=== PATIENT | female | born 1945 | race Caucasian/White ===

== ENCOUNTER 2017-07-09 20:31 | Emergency (ER) | payer OTHER ==
[2017-07-09 20:48] VITALS: BP 158/77; PULSE 70; TEMP 98.8; BMI 29.9
--- NOTE | 2017-07-09 21:50 | PDOC ---
History of Present Illness - General Chief Complaint: Pain Stated Complaint: TOES INJURY Time Seen by Provider: 07/09/17 21:48 History Source: Patient Exam Limitations: No Limitations - History of Present Illness Initial Comments: 07/09/17 22:52 Chief complaint: Left large toe pain History of present illness: Patient is a 71-year-old female with a history of vwc-xzhrlyb-kzobfyljn diabetes, Gerd, HTN, UT, hyperlipidemia here today complaining of left large toe pain after fish tank fell on it yesterday. Patient reports that toe is throbbing. Patient denies any numbness of toe. Patient has not taken anything for pain. 07/09/17 22:54 07/09/17 22:57 Occurred: reports: yesterday Severity: reports: moderate Pain Location: reports: lower extremity (left large toe ) Method of Injury: Yes: direct blow (by fish tank ) Modifying Factors: improves with: None Loss of Consciousness: no loss of consciousness Associated Symptoms (Fall): denies symptoms Past History - Past Medical History Allergies/Adverse Reactions: Allergies Allergy/AdvReac Type Severity Reaction Status Date / Time Penicillins Allergy HIVES Verified 07/09/17 20:45 SWELLING IVP DYE Allergy Swelling Uncoded 07/09/17 20:45 Home Medications: Ambulatory Orders Aspirin [ASA -] 81 mg PO DAILY 07/09/17 Anemia: No Asthma: No Cancer: No Cardiac Disorders: Yes ([place]) CVA: No COPD: No CHF: No Dementia: No Diabetes: Yes GI Disorders: No Disorders: Yes (UTI) HTN: Yes Hypercholesterolemia: Yes Liver Disease: No Suicide Attempt (Hx): No Seizures: No Thyroid Disease: Yes (HYPOTHROIDISM) - Surgical History Abdominal Surgery: No Appendectomy: No Cardiac Surgery: Yes (STENTS X2) Cholecystectomy: No Lung Surgery: No Neurologic Surgery: No Orthopedic Surgery: Yes (LEFT KNEE SURGERY) - Psycho/Social/Smoking Cessation Hx Anxiety: No Suicidal Ideation: No Smoking Status: No Smoking History: Never smoked Have you smoked in the past 12 months: No Number of Cigarettes Smoked Daily: 0 If you are a former smoker, when did you quit?: 1993 Information on smoking cessation initiated: No Hx Alcohol Use: No Drug/Substance Use Hx: No Substance Use Type: None Hx Substance Use Treatment: No Review of Systems - Review of Systems Able to Perform ROS?: Yes Constitutional: No: Symptoms Reported HEENTM: No: Symptoms Reported Respiratory: No: Symptoms reported Cardiac (ROS): No: Symptoms Reported ABD/GI: No: Symptoms Reported : No: Symptoms Reported Musculoskeletal: Yes: Joint Pain (left large toe ), Joint Swelling (left large toe slight ) Integumentary: Yes: Other (subungal hematoma 20 % left large toenail ) Neurological: No: Symptoms reported *Physical Exam - Vital Signs Last Vital Signs Temp Pulse Resp BP Pulse Ox 98.8 F 70 20 158/77 98 07/09/17 20:45 07/09/17 20:45 07/09/17 20:45 07/09/17 20:45 07/09/17 20:45 - Physical Exam General Appearance: Yes: Appropriately Dressed Respiratory/Chest: positive: Lungs Clear, Normal Breath Sounds. negative: Chest Tender, Respiratory Distress Cardiovascular: positive: Regular Rhythm, Regular Rate, S1, S2 Vascular Pulses: Doralis-Pedis (L): 4+ Extremity: positive: Normal Capillary Refill, Normal Range of Motion (left large toe ), Tender (left large toe ), Swelling (minimal left large toe), Erythema (left large toe) Integumentary: positive: Other (subungal hematoma 20 % proximal aspect) Neurologic: positive: Normal Response (left large toe), Respond to painful stimul (left large toe ). negative: Numbness, Sensory Deficit Procedures - Consent Consent obtained: From Patient - Splinting Progress: 07/09/17 22:57 taped left large toe and second toe together and provided a hard sole shoe Medical Decision Making - Medical Decision Making 07/09/17 22:57 07/09/17 22:58 Patient is a 71-year-old female with a history of bth-lqiyzhu-smeflnkdf diabetes , Gerd, HTN, UT, hyperlipidemia here today complaining of left large toe pain after fish tank fell on it yesterday. Patient reports that toe is throbbing. Patient denies any numbness of toe. Patient has not taken anything for pain. Left large toe fracture subungal hematoma proximal aspect 20 % PLAN: xray left large toe fracture of distal aspect amilcar taped left large toe and second toe together, hard sole shoe applied follow up with podiatry *DC/Admit/Observation/Transfer Diagnosis at time of Disposition: Fracture of toe of left foot Qualifiers: Encounter type: initial encounter Toe: great toe Fracture type: closed Phalanx : distal Fracture alignment: nondisplaced Qualified Code(s): S92.425A - Nondisplaced fracture of distal phalanx of left great toe, initial encounter for closed fracture Subungual hematoma of great toe of left foot Qualifiers: Encounter type: initial encounter Qualified Code(s): S90.212A - Contusion of left great toe with damage to nail, initial encounter - Discharge Dispostion Disposition: HOME Condition at time of disposition: Stable - Referrals Referrals: Travis Ospina MD [Primary Care Provider] - Jose Mcbride MD [Staff Physician] - - Patient Instructions Additional Instructions: Tape your left first and second toe together and wear hard sole shoes Follow-up with vp production as soon as possible for further evaluation Take acetaminophen as needed as directed by vending supervisor for pain Return to emergency room if symptoms worsen or new symptoms develop Patient voiced understanding of discharge instructions and all questions were answered
[2017-07-09] MEDS ORDERED: ACETAMINOPHEN 500 MG TABLET (FP) PO ONE (22:41)
[2017-07-09] MEDS ORDERED: ACETAMINOPHEN 500 MG TABLET (FP) ONE ×2 (22:43→22:44)
== END 2017-07-09 23:03 | disposition home or self-care (01) ==
LOC: JERFT 20:31
DX: S92.425A Nondisplaced fracture of distal phalanx of left great toe, initial encounter for closed fracture (principal); S90.212A Contusion of left great toe with damage to nail, initial encounter; W20.8XXA Other cause of strike by thrown, projected or falling object, initial encounter; Y93.89 Activity, other specified; Y92.89 Other specified places as the place of occurrence of the external cause; I25.2 Old myocardial infarction; I10 Essential (primary) hypertension; E11.9 Type 2 diabetes mellitus without complications; Z79.84 Long term (current) use of oral hypoglycemic drugs; K21.9 Gastro-esophageal reflux disease without esophagitis; E78.00 Pure hypercholesterolemia, unspecified; E03.9 Hypothyroidism, unspecified
CPT/HCPCS: 73630-TC-LT; 99281-25

== ENCOUNTER 2018-02-08 17:58 | Inpatient (IN) | payer OTHER ==
--- NOTE | 2018-02-08 18:11 | PDOC ---
Rapid Medical Evaluation Time Seen by Provider: 02/08/18 18:08 Medical Evaluation: Allergies Allergy/AdvReac Type Severity Reaction Status Date / Time Penicillins Allergy HIVES Verified 07/09/17 20:45 SWELLING IVP DYE Allergy Swelling Uncoded 07/09/17 20:45 02/08/18 18:08 I have performed a brief in-person evaluation of this patient. The patient presents with a chief complaint of: fever, weakness, dizziness, n/v/ d x 4 days, urinary frequency, incontinence, coughing, hx of diabetes Pertinent physical exam findings: weak appearing, wheezing to RLL, tachy to 90s (baseline 60s-70s) I have ordered the following: septic workup The patient will proceed to the ED for further evaluation. 02/08/18 18:13 Discharge Disposition - Diagnosis Cough, Vomiting, Diarrhea, Weakness - Referrals Referrals: Travis Ospina MD [Primary Care Provider] - - Patient Instructions - Post Discharge Activity
[2018-02-08 18:14] VITALS: BMI 27.9
[2018-02-08 19:25] LABS: VENOUS PH 7.44 (7.32-7.42); VENOUS PO2 36.3 mmHg (28-48)
[2018-02-08 19:31] LABS: BASO % 0.5 % (0-2.0); HEMATOCRIT 40.8 % (32.4-45.2); LYMPH % 10.4 % (8-40); MCH 31.8 pg (25.7-33.7); MCHC 34.3 g/dl (32.0-36.0); MEAN CELL VOLUME 92.6 fl (80-96); MEAN PLT VOLUME 7.7 fl (7.5-11.1); MONO % 7.3 % (3.8-10.2); NEUT % 81.8 % (42.8-82.8); PLATELET COUNT 178 K/MM3 (134-434); RBC 4.41 M/mm3 (3.60-5.2); WHITE BLOOD COUNT 13.5 K/mm3 (4.0-10.0)
[2018-02-08 19:54] LABS: INR 1.26 (0.82-1.09); PROTHROMBIN TIME (PATIENT) 14.2 SEC (9.98-11.88)
[2018-02-08 19:57] LABS: ACTIVATED PTT 28.8 SECONDS (26.9-34.4)
[2018-02-08 20:08] LABS: ALBUMIN 3.3 g/dl (3.4-5.0); ALK PHOS 89 U/L (45-117); ANION GAP 10 (8-16); BILIRUBIN,TOTAL 1.1 mg/dL (0.2-1.0); BLOOD UREA NITROGEN 14 mg/dL (7-18); CALCIUM 8.2 mg/dL (8.5-10.1); CHLORIDE 94 mmol/L (98-107); CO2 26 mmol/L (21-32); CREATININE 0.8 mg/dL (0.55-1.02); GLUCOSE,RANDOM 267 mg/dL (74-106); POTASSIUM 3.8 mmol/L (3.5-5.1); SGOT/AST 24 U/L (15-37); SGPT/ALT 18 U/L (12-78); SODIUM 130 mmol/L (136-145); TOT PROT 6.8 g/dl (6.4-8.2)
--- NOTE | 2018-02-08 20:32 | PDOC ---
History of Present Illness - General Chief Complaint: Nausea/Vomiting Stated Complaint: Vomiting/Diarrhea Time Seen by Provider: 02/08/18 18:08 - History of Present Illness Initial Comments: 02/08/18 21:15 72-year-old female history of hypertension, diabetes (not compliant with medications as she is unable to afford the co-pay) presents emergency Department with 4 days of progressive chest pain as well as nausea and diarrhea. Patient reports the chest pain is central radiating to the left chest down her left arm and is worse with exertion but also present at rest. She also reports 2 days of diarrhea and productive cough, noting that she was incontinent of diarrhea today which is abnormal for her. Denies fevers, + chills. Denies SOB, LE edema. Denies any abdominal pain. Denies any dizziness, weakness/numbness. Has not tried any medications. Presented today due to the chest pain. PMD: Dr. Ospina Social: distant smoker, no etoh, illicit drugs 02/08/18 21:17 Past History - Past Medical History Allergies/Adverse Reactions: Allergies Allergy/AdvReac Type Severity Reaction Status Date / Time Penicillins Allergy HIVES Verified 02/08/18 18:08 SWELLING IVP DYE Allergy Swelling Uncoded 02/08/18 18:08 Home Medications: Ambulatory Orders Aspirin [ASA -] 81 mg PO DAILY 07/09/17 Anemia: No Asthma: No Cancer: No Cardiac Disorders: Yes ([place]) CVA: No COPD: No CHF: No DVT: No Dementia: No Diabetes: Yes GI Disorders: No Disorders: Yes (UTI) HTN: Yes Hypercholesterolemia: Yes Liver Disease: No Seizures: No Thyroid Disease: Yes (HYPOTHROIDISM) - Surgical History Abdominal Surgery: No Appendectomy: No Cardiac Surgery: Yes (STENTS X2) Cholecystectomy: No Lung Surgery: No Neurologic Surgery: No Orthopedic Surgery: Yes (LEFT KNEE SURGERY) - Immunization History Immunization Up to Date: Yes - Suicide/Smoking/Psychosocial Hx Smoking Status: No Smoking History: Never smoked Have you smoked in the past 12 months: No Number of Cigarettes Smoked Daily: 0 If you are a former smoker, when did you quit?: 1993 Information on smoking cessation initiated: No Hx Alcohol Use: No Drug/Substance Use Hx: No Substance Use Type: None Hx Substance Use Treatment: No Review of Systems - Review of Systems Comments:: 02/08/18 21:16 GENERAL/CONSTITUTIONAL: No fever +chills, +weakness HEAD, EYES, EARS, NOSE AND THROAT: No change in vision. No ear pain or discharge. No sore throat. GASTROINTESTINAL: +nausea, +diarrhea, no vomiting or constipation. GENITOURINARY: No dysuria, frequency, or change in urination. CARDIOVASCULAR: +chest pain, no shortness of breath. RESPIRATORY: +cough and wheezing, no hemoptysis. MUSCULOSKELETAL: No joint or muscle swelling or pain. No neck or back pain. SKIN: No rash NEUROLOGIC: No headache, vertigo, loss of consciousness, or change in strength/ sensation. ENDOCRINE: No increased thirst. No abnormal weight change. HEMATOLOGIC/LYMPHATIC: No anemia, easy bleeding, or history of blood clots. ALLERGIC/IMMUNOLOGIC: No hives or skin allergy. *Physical Exam - Vital Signs Last Vital Signs Temp Pulse Resp BP Pulse Ox 98.8 F 94 H 20 122/71 98 02/08/18 18:09 02/08/18 18:09 02/08/18 18:09 02/08/18 18:09 02/08/18 18:09 - Physical Exam Comments: 02/08/18 21:20 GENERAL: Awake, alert, and fully oriented, in no acute distress HEAD: No signs of trauma EYES: PERRLA, EOMI, sclera anicteric, conjunctiva clear ENT: Auricles normal inspection, hearing grossly normal, nares patent, mild OP erythema without exudates. Moist mucosa NECK: Normal ROM, supple, no lymphadenopathy, JVD, or masses LUNGS: diffuse wheezing with good air movement HEART: Regular rate and rhythm, normal S1 and S2, no murmurs, rubs or gallops ABDOMEN: Soft, nontender, normoactive bowel sounds. No guarding, no rebound. No masses EXTREMITIES: Normal range of motion, no edema. No clubbing or cyanosis. No cords, erythema, or tenderness NEUROLOGICAL: Normal speech, cranial nerves intact, negative pronator drift, 5/ 5 strength in all 4 extremities, normal sensation to light touch in all 4 extremities, normal cerebellar exam, normal gait, normal reflexes and tone SKIN: Warm, Dry, normal turgor, no rashes or lesions noted. Heart Score/ECG Review #1 02/08/18 21:20 Twelve-lead EKG was performed and reviewed by me. Normal sinus rhythm, rate 89. Left axis deviation.+ Right bundle branch block. Compared to EKG from 10/25/2015 , axis is now left and incomplete right bundle is now complete. ED Treatment Course - LABORATORY CBC & Chemistry Diagram: 02/08/18 19:15 02/08/18 19:15 - ADDITIONAL ORDERS Additional order review: Laboratory Results 02/08/18 02/08/18 02/08/18 19:15 19:15 19:15 PT with INR 14.20 H INR 1.26 H D PTT (Actin FS) 28.8 VBG pH 7.44 H POC VBG pCO2 39.0 POC VBG pO2 36.3 Mixed VBG HCO3 26.2 H Lactic Acid 1.6 02/08/18 19:15 RBC 4.41 MCV 92.6 MCHC 34.3 RDW 13.0 MPV 7.7 D Neutrophils % 81.8 D Lymphocytes % 10.4 D Monocytes % 7.3 Eosinophils % 0.0 D Basophils % 0.5 Medical Decision Making - Medical Decision Making 02/08/18 21:21 72-year-old female with a history of hypertension and diabetes (noncompliant with medications) presents emergency Department with complaints of chest pain, nausea, diarrhea, and generalized weakness. Vitals unremarkable. Exam with diffuse wheezing to auscultation. Differential is wide and includes acute coronary syndrome versus viral syndrome versus pneumonia versus angina. Given elevated heart score, and multiple risk factors, we'll admit the patient for cardiac workup. 02/08/18 21:59 UA with UTI, given allergy to PCN (swelling hives), levaquin ordered. Case discussed with nurse practitioner Kari who accepts patient for admission to telemetry/obs with Dr. Whatley as the attending. Case discussed in detail with admitting physician including history, physical exam and ancillary studies. Admitting physician has assumed care for the patient, will follow all pending diagnostics and will complete the evaluation and treatment. *DC/Admit/Observation/Transfer Diagnosis at time of Disposition: Cough, Vomiting, Diarrhea, Weakness, Chest pain - Discharge Dispostion Condition at time of disposition: Stable Admit: Yes - Referrals Referrals: Travis Ospina MD [Primary Care Provider] - - Patient Instructions - Post Discharge Activity - Attestations Physician Attestion: 02/08/18 22:01 Dr. Franci Appiah MD, attest that this document has been prepared under my direction and personally reviewed by me in its entirety. I further attest, that it accurately reflects all work, treatment, procedures and medical decision -making performed by me.
[2018-02-08] MEDS ORDERED: ALBUTEROL SO4 2.5/IPRATROPIUM 0.5 INH SOL 3 ML VIAL.NEB. NEB ONE ×2 (21:19→21:25)
[2018-02-08] MEDS ORDERED: ASPIRIN 325 MG TABLET PO ONE (21:19)
[2018-02-08 21:20] LABS: URINE APPEARANCE CLOUDY; URINE BILIRUBIN NEGATIVE (<2.0 mg/dL); URINE BLOOD 1+ (NEGATIVE); URINE COLOR DKYELLOW; URINE GLUCOSE (UA) 3+ (NEGATIVE); URINE KETONE 1+ (NEGATIVE); URINE NITRITE NEGATIVE (NEGATIVE); URINE UROBILINOGEN 4.0 E.U/dl mg/dL (0.2-1.0)
[2018-02-08 21:21] LABS: URINE LEUK ESTERASE 3+ (NEGATIVE); URINE PROTEIN 1+ (NEGATIVE)
[2018-02-08] MEDS ORDERED: ASPIRIN 325 MG TABLET ONE (21:22)
[2018-02-08 21:24] LABS: EPI CELLS FEW /HPF (FEW); URINE HYALINE CAST 2 /lpf; URINE MUCUS RARE
--- NOTE | 2018-02-09 00:11 | HP ---
CHIEF COMPLAINT: chest pain PCP: Bhavesh HISTORY OF PRESENT ILLNESS: This is a 72 year old female with a past medical history of HTN, DM, MN, stent who presented tot ED with chest pain x 4 days. Associated with some SOB; radiates down left arm; worse on exertion. 2 day history of nausea, diarrhea and productive cough. Pt also reports that she has not taken any of her medications as she cannot afford the copay. ER course was notable for: (1) ECG with new RBBB, trop neg Recent Travel: pt denies PAST MEDICAL HISTORY: HTN, MN s/p stent, DM, ? hypothyroid-previous chart documented but pt denies PAST SURGICAL HISTORY: stent x 2 pt denies h/o of knee surgery Social History: Smoking: as a teenager only Alcohol: pt denies Drugs: pt denies Family History: mother age 84, rectal CA, ? breast CA father in his 50s, heart multiple siblings with HLD and heart disease daughter with colon CA. Allergies Penicillins Allergy (Verified 02/08/18 18:08) HIVES SWELLING in neck IVP DYE Allergy (Uncoded 02/08/18 18:08) Swelling HOME MEDICATIONS: 3 Medication Instructions Recorded Aspirin [ASA -] 81 mg PO DAILY 07/09/17 REVIEW OF SYSTEMS CONSTITUTIONAL: Absent: fever, chills, diaphoresis, generalized weakness, malaise, loss of appetite, weight change HEENT: Absent: rhinorrhea, nasal congestion, throat pain, throat swelling, difficulty swallowing, mouth swelling, ear pain, eye pain, visual changes CARDIOVASCULAR: Present: chest pain Absent: syncope, palpitations, irregular heart rate, lightheadedness, peripheral edema RESPIRATORY: Present: cough, shortness of breath Absent: dyspnea with exertion, orthopnea, wheezing, stridor, hemoptysis GASTROINTESTINAL: Present: nausea, diarrhea Absent: abdominal pain, abdominal distension, vomiting, constipation, melena, hematochezia GENITOURINARY: Absent: dysuria, frequency, urgency, hesitancy, hematuria, flank pain, genital pain MUSCULOSKELETAL: Absent: myalgia, arthralgia, joint swelling, back pain, neck pain SKIN: Absent: rash, itching, pallor HEMATOLOGIC/IMMUNOLOGIC: Absent: easy bleeding, easy bruising, lymphadenopathy, frequent infections ENDOCRINE: Absent: unexplained weight gain, unexplained weight loss, heat intolerance, cold intolerance NEUROLOGIC: Absent: headache, focal weakness or paresthesias, dizziness, unsteady gait, seizure, mental status changes, bladder or bowel incontinence PSYCHIATRIC: Absent: anxiety, depression, suicidal or homicidal ideation, hallucinations. PHYSICAL EXAMINATION Vital Signs - 24 hr 3 02/08/18 18:09 Temperature 98.8 F Pulse Rate 94 H Respiratory 20 Rate Blood Pressure 122/71 O2 Sat by Pulse 98 Oximetry (%) GENERAL: Awake, alert, and fully oriented, in no acute distress. HEAD: Normal with no signs of trauma. EYES: Pupils equal, round and reactive to light, extraocular movements intact, sclera anicteric, conjunctiva clear. No lid lag. EARS, NOSE, THROAT: Ears normal, nares patent, oropharynx clear without exudates. Moist mucous membranes. NECK: Normal range of motion, supple without lymphadenopathy, JVD, or masses. LUNGS: Breath sounds equal, fine bibasilar rales present. No wheezes. No accessory muscle use. HEART: Regular rate and rhythm, normal S1 and S2 without murmur, rub or gallop. ABDOMEN: Soft, nontender, not distended, normoactive bowel sounds, no guarding, no rebound, no masses. No hepatomegaly or splenomegaly. MUSCULOSKELETAL: Normal range of motion at all joints. No bony deformities or tenderness. No CVA tenderness. UPPER EXTREMITIES: 2+ pulses, warm, well-perfused. No cyanosis. No clubbing. No peripheral edema. LOWER EXTREMITIES: 2+ pulses, warm, well-perfused. No calf tenderness. No peripheral edema. NEUROLOGICAL: Cranial nerves II-XII intact. Normal speech. Normal gait. PSYCHIATRIC: Cooperative. Good eye contact. Appropriate mood and affect. SKIN: Warm, dry, normal turgor, no rashes or lesions noted, normal capillary refill. Laboratory Results - last 24 hr 3 02/08/18 02/08/18 02/08/18 19:02 19:15 19:15 WBC 13.5 H D RBC 4.41 Hgb 14.0 Hct 40.8 MCV 92.6 MCH 31.8 MCHC 34.3 RDW 13.0 Plt Count 178 MPV 7.7 D Neutrophils % 81.8 D Lymphocytes % 10.4 D Monocytes % 7.3 Eosinophils % 0.0 D Basophils % 0.5 PT with INR 14.20 H INR 1.26 H D PTT (Actin FS) 28.8 VBG pH POC VBG pCO2 POC VBG pO2 Mixed VBG HCO3 Sodium Potassium Chloride Carbon Dioxide Anion Gap BUN Creatinine Creat Clearance w eGFR Random Glucose Lactic Acid Calcium Total Bilirubin AST ALT Alkaline Phosphatase Troponin I Total Protein Albumin Urine Color Dkyellow Urine Appearance Cloudy Urine pH 5.0 Ur Specific [place] 1.026 Urine Protein 1+ H Urine Glucose (UA) 3+ H Urine Ketones 1+ H Urine Blood 1+ H Urine Nitrite Negative Urine Bilirubin Negative Urine Urobilinogen 4.0 e.u/dl H Ur Leukocyte Esterase 3+ H Urine WBC (Auto) 213 Urine RBC (Auto) 11 Ur Epithelial Cells Few Hyaline Casts 2 Urine Mucus Rare 3 02/08/18 02/08/18 02/08/18 19:15 19:15 19:15 WBC RBC Hgb Hct MCV MCH MCHC RDW Plt Count MPV Neutrophils % Lymphocytes % Monocytes % Eosinophils % Basophils % PT with INR INR PTT (Actin FS) VBG pH 7.44 H POC VBG pCO2 39.0 POC VBG pO2 36.3 Mixed VBG HCO3 26.2 H Sodium 130 L Potassium 3.8 Chloride 94 L Carbon Dioxide 26 Anion Gap 10 BUN 14 Creatinine 0.8 Creat Clearance w eGFR > 60 Random Glucose 267 H Lactic Acid 1.6 Calcium 8.2 L Total Bilirubin 1.1 H D AST 24 ALT 18 Alkaline Phosphatase 89 Troponin I < 0.02 Total Protein 6.8 Albumin 3.3 L Urine Color Urine Appearance Urine pH Ur Specific [place] Urine Protein Urine Glucose (UA) Urine Ketones Urine Blood Urine Nitrite Urine Bilirubin Urine Urobilinogen Ur Leukocyte Esterase Urine WBC (Auto) Urine RBC (Auto) Ur Epithelial Cells Hyaline Casts Urine Mucus ECG Normal sinus rhythm vent rate 89, QTC 476 RBBB left axis deviation Radiology Result CXR, portable- blunting of right costophrenic angle and increased vascular congestion, ? cardiomegaly ASSESSMENT/PLAN: 72yF with PMH HTN, MN s/p stent, DM, ? hypothyroid presented to the ED with chest pain, nausea, diarrhea, cough. Chest pain - admit to tele - trop neg x 1, trend x 2 more - cardiology consult CHF exac - + crackles on exam and blunting of costophrenic angles - lasix 40mg x 1 now - BNP ordered. - cardiology f/u Bronchitis - alb neb prn - robitussin ac x 1 tonight - given levaquin for UTI UTI - cont levaquin, pt with pcn allergy - follow culture results diarrhea - stool for c diff and c/s ordered ? hypothyroid - tsh ordered DM - BGM AC/HS with novolog SS h/o HTN - bp stable at present. h/o MN - cont home ASA DVT PPX - heparin deferred; anticipated LOS less than 48h FEN - tolerating po - BMP in am - low sodium/diabetic diet Dispo: pt admitted for further observation. Visit type - Emergency Visit Emergency Visit: Yes ED Registration Date: 02/08/18 Care time: The patient presented to the Emergency Department on the above date and was hospitalized for further evaluation of their emergent condition. - New Patient This patient is new to me today: Yes Date on this admission: 02/08/18 - Critical Care Critical Care patient: No Hospitalist Screening - Colonoscopy Questionnaire Colonoscopy Questionnaire: Colonoscopy Questionnaire - Patient: 50 - 75 years old and never had a screening colonoscopy: Yes History of colon or rectal polyps, or CA: No History of IBD, Crohn's disease or UC: No History of abdominal radiation therapy as a child: No - Relative: 1 with colon or rectal CA, or polyps at age 60 or younger: Yes Colon or rectal CA diagnosed at age 45 or younger: No Multiple relatives with colon or rectal CA: Yes - Outcome: Screening Result: Positive Screen
[2018-02-09] MEDS ORDERED: FUROSEMIDE 40 MG/4 ML INJECTABLE VIAL IVPUSH ONE (00:15)
[2018-02-09] MEDS ORDERED: guaiFENesin/CODEINE 10 ML UNIT-DOSE CUPS PO ONE (01:56)
[2018-02-09] MEDS: ACETAMINOPHEN 325 MG TABLET (FP) PO PRN ×2 (02:04→21:48)
[2018-02-09 03:42] LABS: N-TERMINAL BNP 347.88 pg/ml (5-125)
[2018-02-09] MEDS: INSULIN SLIDING SCALE (NOVOLOG) 1 VIAL SQ SCH ×4 (06:26→21:51)
[2018-02-09 08:06] LABS: CHLORIDE 96 mmol/L (98-107); POTASSIUM 3.1 mmol/L (3.5-5.1); SODIUM 133 mmol/L (136-145)
[2018-02-09 09:00] LABS: ANION GAP 10 (8-16); BLOOD UREA NITROGEN 18 mg/dL (7-18); CO2 27 mmol/L (21-32); CREATININE 0.8 mg/dL (0.55-1.02); GLUCOSE,RANDOM 259 mg/dL (74-106); MAGNESIUM 1.9 mg/dL (1.8-2.4)
[2018-02-09] MEDS ORDERED: ASPIRIN 81 MG CHEWABLE TABLETS PO SCH (10:00)
--- NOTE | 2018-02-09 11:37 | EKG ---
Test Reason : Blood Pressure : / mmHG Vent. Rate : 089 BPM Atrial Rate : 089 BPM P-R Int : 154 ms QRS Dur : 138 ms QT Int : 392 ms P-R-T Axes : 059 -78 017 degrees QTc Int : 476 ms NORMAL SINUS RHYTHM POSSIBLE LEFT ATRIAL ENLARGEMENT LEFT AXIS DEVIATION RIGHT BUNDLE BRANCH BLOCK ABNORMAL ECG WHEN COMPARED WITH ECG OF 25-OCT-2015 00:12, VENT. RATE HAS INCREASED BY 31 BPM RIGHT BUNDLE BRANCH BLOCK HAS REPLACED INCOMPLETE RIGHT BUNDLE BRANCH BLOCK Confirmed by LUL DUQUE, DIPIKA ([id number]) on 02/09/2018 11:36:52 AM Referred By: Confirmed By:DIPIKA MCCARTY MD
--- NOTE | 2018-02-09 14:19 | PN ---
Progress Note, Physician Chief Complaint: THIS PATIENT IS WELL KNOWN TO MY SERVICE NON-COMPLIANT DIABETIC WITH CAD, HTN, LIPIDEMIA HERE WITH CHEST PAIN - Current Medication List Current Medications: Active Medications Acetaminophen (Tylenol -) 650 mg PO Q6H PRN PRN Reason: PAIN LEVEL 4 - 6 Last Admin: 02/09/18 02:04 Dose: 650 mg Albuterol Sulfate (Ventolin 0.083% Nebulizer Soln -) 1 amp NEB Q4H PRN PRN Reason: WHEEZING Aspirin (Asa -) 81 mg PO DAILY MAXINE Last Admin: 02/09/18 09:10 Dose: 81 mg Insulin Aspart (Novolog Vial Sliding Scale -) 1 vial SQ HS MAXINE PRN Reason: Protocol Insulin Aspart (Novolog Vial Sliding Scale -) 1 vial SQ TIDAC MAXINE PRN Reason: Protocol Last Admin: 02/09/18 12:14 Dose: 3 units - Objective Vital Signs: Vital Signs Temperature 98.4 F 02/09/18 08:45 Pulse Rate 73 02/09/18 08:45 Respiratory Rate 22 02/09/18 08:45 Blood Pressure 130/61 02/09/18 08:45 O2 Sat by Pulse Oximetry (%) 93 L 02/09/18 08:10 Constitutional: Yes: Moderate Distress Eyes: Yes: WNL HENT: Yes: WNL Neck: Yes: WNL Cardiovascular: Yes: WNL Respiratory: Yes: WNL Gastrointestinal: Yes: WNL Genitourinary: Yes: WNL Musculoskeletal: Yes: WNL Extremities: Yes: WNL Edema: No Peripheral Pulses WNL: Yes Integumentary: Yes: WNL Wound/Incision: Yes: Clean/Dry Neurological: Yes: Pre-Existing Deficit ...Motor Strength: LLE, RLE Psychiatric: Yes: Other Labs: CBC, BMP 02/08/18 19:15 02/09/18 05:00 INR, PTT INR 1.26 (0.82-1.09) H D 02/08/18 19:15 Problem List - Problems (1) Chest pain Code(s): R07.9 - CHEST PAIN, UNSPECIFIED (2) Cough Code(s): R05 - COUGH (3) Generalized weakness Code(s): R53.1 - WEAKNESS (4) Diabetes type 2, uncontrolled Code(s): E11.65 - TYPE 2 DIABETES MELLITUS WITH HYPERGLYCEMIA (5) HTN (hypertension) Code(s): I10 - ESSENTIAL (PRIMARY) HYPERTENSION Qualifiers: Hypertension type: essential hypertension Qualified Code(s): I10 - Essential (primary) hypertension Assessment/Plan CARDIOLOGY EVAL WILL NEED CARDIAC CATH HIGH RISK CAD WITH NON-COMPLIANCE TO MEDICATIONS AND DIET D/W CARDIOLOGY WILL STABILIZE HERE UNTIL SUNDAY IV ABX FOR BRONCHITIS WITH NEBS MONITOR BGM
[2018-02-09] MEDS ORDERED: POTASSIUM CHLORIDE TABS 10 MEQ TABLET.ER (FP) PO ONE (14:30)
[2018-02-09] MEDS: NAPH,MB-DB/K PH,MBDB POWDER PACKET PO SCH (15:15)
[2018-02-09] MEDS: ALBUTEROL SO4 0.083% IH SOL 2.5 MG/3 ML VIAL.NEB. NEB PRN ×2 (15:46→20:40)
--- NOTE | 2018-02-09 19:39 | CON.CARD ---
Consult Consult Specialty:: Cardialogy Referred by:: Dr. Simons Reason for Consultation:: Chest pain - History of Present Illness Chief Complaint: Chest pain History of Present Illness: 72 year old female with a PMHx of HTN, DM, CAD, [place], s/p stent at [facility] in the past admitted 02/08/2018 with worsening chest pain. THe patient has been experiencing intermittent chest pain for one month. Her substernal chest pain worsened 4 days prior to her admission with increased intensity, duration and frequency. Her chest pain also associated with SOB. Her exercise tolerance reduced markedly because of exertional chest pain and SOB. ECG with new RBBB. [place] ruled out. - History Source History Provided By: Patient, Family Member Limitations to Obtaining History: No Limitations - Past Medical History RESEARCH PHYSICIAN: Yes: Peripheral Neuropathy Cardio/Vascular: Yes: CAD, HTN, Hyperlipdemia, [place] ...: No Endocrine: Yes: Diabetes Mellitus - Alcohol/Substance Use Hx Alcohol Use: No - Smoking History Smoking history: Never smoked Have you smoked in the past 12 months: No Aproximately how many cigarettes per day: 0 If you are a former smoker, when did you quit?: 1993 Home Medications - Allergies Allergies/Adverse Reactions: Allergies Allergy/AdvReac Type Severity Reaction Status Date / Time Penicillins Allergy HIVES Verified 02/08/18 18:08 SWELLING IVP DYE Allergy Swelling Uncoded 02/08/18 18:08 - Home Medications Home Medications: Ambulatory Orders Aspirin [ASA -] 81 mg PO DAILY 07/09/17 Family Disease History - Family Disease History Family Disease History: Diabetes: Father, Mother, Brother, Heart Disease: Father , Brother Review of Systems - Review of Systems Constitutional: reports: No Symptoms Eyes: reports: No Symptoms HENT: reports: No Symptoms Neck: reports: No Symptoms Cardiovascular: reports: Chest Pain, Shortness of Breath Respiratory: reports: SOB, SOB on Exertion Genitourinary: reports: No Symptoms Breasts: reports: No Symptoms Reported Musculoskeletal: reports: No Symptoms Integumentary: reports: No Symptoms Neurological: reports: No Symptoms Vital Signs: Vital Signs Temperature 98.6 F 02/09/18 14:00 Pulse Rate 76 02/09/18 14:00 Respiratory Rate 20 02/09/18 14:00 Blood Pressure 127/64 02/09/18 14:00 O2 Sat by Pulse Oximetry (%) 93 L 02/09/18 08:10 General: Well developed. Well nourished. No acute distress. Head: Normocephalic. Atraumatic, Eyes: PERRLA, EOMI. Sclerae anicteric. Conjunctivae clear. Neck: Supple. No JVD. No bruits. Heart: Normal S1, S2: Regular rhythm and rate. No murmur. No gallop or rub. Lungs: Symmetrical air entry. Clear to auscultation. No crackle. No wheezing or rhonchi. Abdomen: Soft. Bowel sound positive. Non tender. No masses. Extremities: No edema. No clubbing or cyanosis. - Other Data Labs, Other Data: CBC, BMP 02/08/18 19:15 02/09/18 05:00 INR, PTT INR 1.26 (0.82-1.09) H D 02/08/18 19:15 Troponin, BNP 02/08/18 02/09/18 02/09/18 19:15 03:00 05:00 Troponin I < 0.02 < 0.02 < 0.02 B-Natriuretic Peptide 347.88 H Troponin, BNP 02/08/18 02/09/18 02/09/18 19:15 03:00 05:00 Troponin I < 0.02 < 0.02 < 0.02 B-Natriuretic Peptide 347.88 H Imaging - Results EKG: Image Reviewed (NORMAL SINUS RHYTHM POSSIBLE LEFT ATRIAL ENLARGEMENT LEFT AXIS DEVIATION RIGHT BUNDLE BRANCH BLOCK) Assessment/Plan 72 year old female with a PMHx of HTN, DM, CAD, [place], s/p stent at [facility] in the past admitted 02/08/2018 with worsening chest pain. ECG with new RBBB. [place] ruled out. 1. Unstable angina: The patient has a history of CAD, [place] s/p stenting in the past admitted with typical unstable angina. She has high likelihood of significant CAD. Cardiac cath with possible PCI will be scheduled for 02/11/2018 at [facility]. Start prednisone 50 mg q6h x4 doses 24 hours before the scheduled cardiac cath due to dye allergy. Please keep the patient NPO after midnight on Sunday. Should start IV heparin if patient has recurrent angina while in the hospital. Add Metoprolol succinate 25 mg daily. Continue aspirin and atorvastatin. 2) HTN: BP is controlled with diet.
[2018-02-09] MEDS ORDERED: INSULIN (NOVOLOG) ASPART 100 UNITS/ML 10ML VIAL ONE (21:27)
[2018-02-09] MEDS: ATORVASTATIN CA 20 MG TABLET (FP) PO SCH (21:48)
[2018-02-09] MEDS: guaiFENesin 200 MG/10 ML 10 ML UNIT-DOSE CUPS PO PRN (22:33)
[2018-02-10] MEDS: INSULIN SLIDING SCALE (NOVOLOG) 1 VIAL SQ SCH ×4 (06:39→21:08)
[2018-02-10 08:26] LABS: BASO % 0.5 % (0-2.0); EOS % 2.2 % (0-4.5); HEMATOCRIT 37.3 % (32.4-45.2); HEMOGLOBIN 12.7 GM/dL (10.7-15.3); LYMPH % 18.9 % (8-40); MCH 31.8 pg (25.7-33.7); MCHC 34.2 g/dl (32.0-36.0); MEAN CELL VOLUME 93.2 fl (80-96); MEAN PLT VOLUME 7.6 fl (7.5-11.1); MONO % 12.2 % (3.8-10.2); NEUT % 66.2 % (42.8-82.8); PLATELET COUNT 199 K/MM3 (134-434); RDW 13.1 % (11.6-15.6)
[2018-02-10 08:28] LABS: ALBUMIN 2.7 g/dl (3.4-5.0); ANION GAP 7 (8-16); BLOOD UREA NITROGEN 15 mg/dL (7-18); CALCIUM 8.2 mg/dL (8.5-10.1); CHLORIDE 100 mmol/L (98-107); CHOLESTEROL 158 mg/dL (50-200); CO2 29 mmol/L (21-32); CREATININE 0.8 mg/dL (0.55-1.02); GLUCOSE,RANDOM 246 mg/dL (74-106); MAGNESIUM 2.2 mg/dL (1.8-2.4); POTASSIUM 3.3 mmol/L (3.5-5.1); SGOT/AST 14 U/L (15-37); SGPT/ALT 16 U/L (12-78); SODIUM 136 mmol/L (136-145); TRIGLYCERIDES 134 mg/dL (35-160)
[2018-02-10 08:31] LABS: ALK PHOS 82 U/L (45-117); BILIRUBIN,TOTAL 0.5 mg/dL (0.2-1.0); HDL CHOLESTEROL 41 mg/dL (40-60); LDL CHOLESTEROL (ONLY SJRH) 102 mg/dL (5-100)
[2018-02-10] MEDS: ASPIRIN COATED 81 MG TABLET.EC PO SCH (09:02)
[2018-02-10] MEDS: NAPH,MB-DB/K PH,MBDB POWDER PACKET PO SCH (09:02)
[2018-02-10] MEDS ORDERED: RANITIDINE HCL 150 MG TABLET (FP) PO ONE ×2 (09:12→12:45)
[2018-02-10] MEDS ORDERED: HEPARIN NA (PORCINE) 5,000 UNITS/ML 1ML VIAL IVPUSH PRN ×3 (09:16→20:00)
--- NOTE | 2018-02-10 09:19 | PN ---
Progress Note (short form) - Note Progress Note: this is a 72 year old female with PMHx of HTN, DM, CAD, [place], s/p stent at [facility] in the past admitted 02/08/2018 with worsening chest pain. ECG with new RBBB. [place] ruled out. Unstable angina with new RBBB: The patient has a history of CAD, [place] s/p stenting in the past admitted with typical unstable angina. She has high likelihood of significant CAD. cardiology evaluate the patient for the UA and RBBB and schedule the patient to be transferred to [facility] for Cardiac catherterization, she is to be started today on Prednisone 50mg q6hrs, due to history of dye allergy. will keep the patient NPO PM tonight, heprain drip, c/ w metoprolol 25mg daily, c/w asprin and c/w atrovastatin Hypokalemia: 40meq every 2 hrs x 2 doses only repeat CMP tomorrow HTN: c/w same management DL: c/w atrovastatin heparin drip 15units/kg/hr repeat PT q4hrs until therapeutic transfer to [facility] in the morning Visit type - Emergency Visit Emergency Visit: No - New Patient This patient is new to me today: Yes Date on this admission: 02/10/18 - Critical Care Critical Care patient: No - Discharge Referral Referred to [facility] Med P.C.: No
[2018-02-10] MEDS ORDERED: HEPARIN - 25,000 UNIT in SODIUM CHLORIDE 495 ML IV SCH (09:30)
--- NOTE | 2018-02-10 10:57 | PN ---
Progress Note (short form) - Note Progress Note: PULMONARY CONSULTATION DICTATED 02/10/18 IMP CP/DYSPNEA LIKEY UNSTABLE ANGINA COUGH/BRONCHOSPASM ? OBSTRUCTIVE AIRWAY DISEASE HTN DM PLAN PREDNISONE INHALED BRONCHODILATORS CARDIAC CATH HEPARIN PFTS OUTPATIENT DR VALE Problem List - Problems (1) Diabetes Code(s): E11.9 - TYPE 2 DIABETES MELLITUS WITHOUT COMPLICATIONS (2) Chest pain Code(s): R07.9 - CHEST PAIN, UNSPECIFIED (3) Cough Code(s): R05 - COUGH (4) HTN (hypertension) Code(s): I10 - ESSENTIAL (PRIMARY) HYPERTENSION Qualifiers: Hypertension type: essential hypertension Qualified Code(s): I10 - Essential (primary) hypertension (5) Unstable angina Code(s): I20.0 - UNSTABLE ANGINA (6) ASHD (arteriosclerotic heart disease) Code(s): I25.10 - ATHSCL HEART DISEASE OF [place] CORONARY ARTERY W/O ANG PCTRS
--- NOTE | 2018-02-10 11:30 | CONS ---
DATE OF CONSULTATION: 02/10/2018 REFERRING PHYSICIAN: Travis Ospina MD The patient is a 72-year-old female a past medical history of ASHD, status post [place], status post stent, diabetes mellitus, hypertension, history of tobacco use many years ago, admitted to [facility] with a complaint of 1-month history of increasing shortness of breath, dyspnea on exertion, and chest pain. The patient states, for the past month or so, she started noticing increasing shortness of breath with exertion. She has also had chest pain, which she describes as midsternal, radiating to the left arm. This initially was occurring with exertion. Over the past week, symptoms increased and is occurring at rest. She denies any fevers, chills. Does have a cough and some mild chest congestion. She denies any recent URI symptoms. She denies any history of COPD or asthma in the past. She states that her cough is nonproductive. There is no fevers or chills or hemoptysis. PAST MEDICAL HISTORY: Again, includes ASHD, status post [place], status post stents, hypertension, diabetes, hyperlipidemia. SOCIAL HISTORY: No occupational exposures. History of tobacco use, quit in 1993. CURRENT MEDICATIONS: Prednisone 50 q.6; Tylenol; heparin; albuterol via nebulizer q.4 hours p.r.n.; Robitussin; Lipitor; NovoLog; Ecotrin; KCl. PHYSICAL EXAMINATION: General: The patient is a well-developed, well-nourished female, awake, alert, in no acute distress. Vital Signs: She is afebrile. Blood pressure 120/57, respiratory rate is 18. HEENT: Normocephalic, atraumatic. Neck: Supple. Heart: Regular, S1, S2. Chest: Scattered bilateral wheezes, inferior rhonchi. Abdomen: Soft, bowel sounds positive. Extremities: No cyanosis, edema. LABORATORIES: WBC 7, hemoglobin 12.7, hematocrit 37.3 with a platelet count of 199,000. INR is 1.26. Venous blood gas 7.4/39/36/22/26. Electrolytes: BUN 15, creatinine 0.8, lactate level is normal at 1.6. Hemoglobin A1c is 10.8. CHEST X-RAY: No acute infiltrates and/or effusions. IMPRESSION: 1. Chest pain and dyspnea, most likely secondary to unstable angina. 2. Cough with mild chest congestion. Cannot exclude the possibility of obstructive airway disease. 3. Hypertension. 4. Diabetes. PLAN: Agree with cardiac catheterization, as per Cardiology; inhaled bronchodilators p.r.n.; supplemental O2; pulmonary function test as outpatient. SHANELL VALE M.D. LEONA/[id number]
[2018-02-10] MEDS: predniSONE 20 MG TABLET (UD) PO SCH ×3 (11:33→20:29)
[2018-02-10] MEDS: POTASSIUM CHLORIDE ORAL LIQUID 20 MEQ/15 ML PO SCH ×2 (11:34→14:16)
[2018-02-10] MEDS: guaiFENesin 200 MG/10 ML 10 ML UNIT-DOSE CUPS PO PRN ×2 (11:36→16:55)
--- NOTE | 2018-02-10 12:43 | PN ---
Progress Note, Physician Chief Complaint: Patient still has intermittent chest pain. No SOB at rest. No palpitation. Still has dry cough. Tele shows sinus with rare APCs and VPCs. History of Present Illness: 72 year old female with a PMHx of HTN, DM, CAD, [place], s/p stent at [facility] in the past admitted 02/08/2018 with worsening chest pain. ECG with new RBBB. [place] ruled out. The patient still has intermittent chest pain while on current medications. IV heparin will be started. Patient will be transferred to [facility] for cardiac cath and possible PCI tomorrow. - Current Medication List Current Medications: Active Medications Acetaminophen (Tylenol -) 650 mg PO Q6H PRN PRN Reason: PAIN LEVEL 4 - 6 Last Admin: 02/09/18 21:48 Dose: 650 mg Albuterol Sulfate (Ventolin 0.083% Nebulizer Soln -) 1 amp NEB Q4H PRN PRN Reason: WHEEZING Last Admin: 02/09/18 20:40 Dose: 1 amp Aspirin (Ecotrin -) 81 mg PO DAILY MAXINE Last Admin: 02/10/18 09:02 Dose: 81 mg Atorvastatin Calcium (Lipitor -) 20 mg PO HS MAXINE Last Admin: 02/09/18 21:48 Dose: 20 mg Guaifenesin (Robitussin -) 10 ml PO Q6H PRN PRN Reason: COUGH Last Admin: 02/10/18 11:36 Dose: 10 ml Heparin Sodium (Porcine) (Heparin -) 5,000 unit IVPUSH PRN PRN PRN Reason: Heparin Heparin Sodium (Porcine) 25, (000 unit/ Sodium Chloride) 500 mls @ 23.89 mls/ hr IV TITR MAXINE PRN Reason: 15 UNIT/KG/HR Insulin Aspart (Novolog Vial Sliding Scale -) 1 vial SQ HS MAXINE PRN Reason: Protocol Last Admin: 02/09/18 21:51 Dose: 3 units Insulin Aspart (Novolog Vial Sliding Scale -) 1 vial SQ TIDAC MAXINE PRN Reason: Protocol Last Admin: 02/10/18 11:35 Dose: 4 units Potassium Phos/Sodium Phos (Phos-Nak Packet -) 1 packet PO DAILY MAXINE Last Admin: 02/10/18 09:02 Dose: 1 packet Prednisone (Deltasone -) 50 mg PO Q6H MAXINE Stop: 02/11/18 03:11 Last Admin: 02/10/18 11:33 Dose: 50 mg - Objective Vital Signs: Vital Signs Temperature 99.1 F 02/10/18 08:14 Pulse Rate 75 02/10/18 08:14 Respiratory Rate 18 02/10/18 08:14 Blood Pressure 120/57 02/10/18 08:14 O2 Sat by Pulse Oximetry (%) 96 02/10/18 08:00 eneral: Well developed. Well nourished. No acute distress. Head: Normocephalic. Atraumatic, Eyes: PERRLA, EOMI. Sclerae anicteric. Conjunctivae clear. Neck: Supple. No JVD. No bruits. Heart: Normal S1, S2: Regular rhythm and rate. No murmur. No gallop or rub. Lungs: Symmetrical air entry. Clear to auscultation. No crackle. No wheezing or rhonchi. Abdomen: Soft. Bowel sound positive. Non tender. No masses. Extremities: No edema. No clubbing or cyanosis. Labs: CBC, BMP 02/10/18 06:00 02/10/18 06:00 INR, PTT INR 1.26 (0.82-1.09) H D 02/08/18 19:15 Assessment/Plan 72 year old female with a PMHx of HTN, DM, CAD, [place], s/p stent at [facility] in the past admitted 02/08/2018 with worsening chest pain. ECG with new RBBB. [place] ruled out. 1. Unstable angina: The patient has a history of CAD, [place] s/p stenting in the past admitted with typical unstable angina. She has high likelihood of significant CAD. Agree to start IV heparin in the setting of recurrent angina. Cardiac cath with possible PCI will be scheduled for 02/11/2018 at [facility]. Start prednisone 50 mg q6h x4 doses 24 hours due to dye allergy. Please keep the patient NPO after midnight. Add Metoprolol succinate 25 mg daily. Continue aspirin and atorvastatin. 2) HTN: BP is controlled with diet.
[2018-02-10] MEDS: HEPARIN - 25,000 UNIT in SODIUM CHLORIDE 495 ML IV SCH ×2 (12:48→20:35)
[2018-02-10] MEDS: ALBUTEROL SO4 0.083% IH SOL 2.5 MG/3 ML VIAL.NEB. NEB PRN (20:45)
[2018-02-10] MEDS: ATORVASTATIN CA 20 MG TABLET (FP) PO SCH (21:08)
[2018-02-11] MEDS: predniSONE 20 MG TABLET (UD) PO SCH (03:10)
[2018-02-11] MEDS: HEPARIN - 25,000 UNIT in SODIUM CHLORIDE 495 ML IV SCH (03:36)
[2018-02-11] MEDS: guaiFENesin 200 MG/10 ML 10 ML UNIT-DOSE CUPS PO PRN (05:26)
[2018-02-11] MEDS: INSULIN SLIDING SCALE (NOVOLOG) 1 VIAL SQ SCH (06:15)
[2018-02-11 06:25] LABS: BASO % 0.5 % (0-2.0); HEMOGLOBIN 13.4 GM/dL (10.7-15.3); LYMPH % 10.6 % (8-40); MCH 32.7 pg (25.7-33.7); MCHC 35.2 g/dl (32.0-36.0); MEAN CELL VOLUME 92.9 fl (80-96); MONO % 2.3 % (3.8-10.2); NEUT % 86.6 % (42.8-82.8); PLATELET COUNT 246 K/MM3 (134-434); RBC 4.09 M/mm3 (3.60-5.2); RDW 13.1 % (11.6-15.6); WHITE BLOOD COUNT 6.3 K/mm3 (4.0-10.0)
[2018-02-11 06:44] LABS: INR 1.04 (0.82-1.09); PROTHROMBIN TIME (PATIENT) 11.8 SEC (9.98-11.88)
[2018-02-11 06:54] LABS: ALBUMIN 2.9 g/dl (3.4-5.0); ANION GAP 10 (8-16); BLOOD UREA NITROGEN 19 mg/dL (7-18); CALCIUM 8.3 mg/dL (8.5-10.1); CHLORIDE 99 mmol/L (98-107); CO2 24 mmol/L (21-32); POTASSIUM 4.2 mmol/L (3.5-5.1); SGOT/AST 13 U/L (15-37); SGPT/ALT 18 U/L (12-78); SODIUM 133 mmol/L (136-145)
[2018-02-11 06:58] LABS: ALK PHOS 85 U/L (45-117); BILIRUBIN,TOTAL 0.3 mg/dL (0.2-1.0); CREATININE 0.9 mg/dL (0.55-1.02); TOT PROT 6.4 g/dl (6.4-8.2)
[2018-02-11 07:06] LABS: GLUCOSE,RANDOM 379 mg/dL (74-106)
[2018-02-11] MEDS: NAPH,MB-DB/K PH,MBDB POWDER PACKET PO SCH (09:58)
[2018-02-11] MEDS: ASPIRIN COATED 81 MG TABLET.EC PO SCH (10:00)
--- NOTE | 2018-02-11 10:19 | PN ---
Progress Note, Physician History of Present Illness: pulmonary alert,nad,-cp,-sob at rest . pt to be transferred to [facility] for cardiac cath. - Current Medication List Current Medications: Active Medications Acetaminophen (Tylenol -) 650 mg PO Q6H PRN PRN Reason: PAIN LEVEL 4 - 6 Last Admin: 02/09/18 21:48 Dose: 650 mg Albuterol Sulfate (Ventolin 0.083% Nebulizer Soln -) 1 amp NEB Q4H PRN PRN Reason: WHEEZING Last Admin: 02/10/18 20:45 Dose: 1 amp Aspirin (Ecotrin -) 81 mg PO DAILY MAXINE Last Admin: 02/11/18 10:00 Dose: 81 mg Atorvastatin Calcium (Lipitor -) 20 mg PO HS MAXINE Last Admin: 02/10/18 21:08 Dose: 20 mg Guaifenesin (Robitussin -) 10 ml PO Q6H PRN PRN Reason: COUGH Last Admin: 02/11/18 05:26 Dose: 10 ml Heparin Sodium (Porcine) (Heparin -) 5,000 unit IVPUSH PRN PRN PRN Reason: Heparin Heparin Sodium (Porcine) (Heparin -) 1,000 unit IVPUSH PRN PRN PRN Reason: Heparin Last Admin: 02/10/18 20:35 Dose: 1,000 unit Heparin Sodium (Porcine) 25, (000 unit/ Sodium Chloride) 500 mls @ 23.89 mls/ hr IV TITR MAXINE PRN Reason: 15 UNIT/KG/HR Last Admin: 02/11/18 03:36 Dose: 17.45 unit/kg/hr, 27.8 mls/hr Insulin Aspart (Novolog Vial Sliding Scale -) 1 vial SQ HS MAXINE PRN Reason: Protocol Last Admin: 02/10/18 21:08 Dose: 6 units Insulin Aspart (Novolog Vial Sliding Scale -) 1 vial SQ TIDAC MAXINE PRN Reason: Protocol Last Admin: 02/11/18 06:15 Dose: 8 units Potassium Phos/Sodium Phos (Phos-Nak Packet -) 1 packet PO DAILY MAXINE Last Admin: 02/11/18 09:58 Dose: Not Given - Objective Vital Signs: Vital Signs Temperature 97.9 F 02/11/18 06:00 Pulse Rate 67 02/11/18 06:00 Respiratory Rate 20 02/11/18 06:00 Blood Pressure 151/87 02/11/18 06:00 O2 Sat by Pulse Oximetry (%) 94 L 02/10/18 21:00 Constitutional: Yes: Well Nourished, Calm Eyes: Yes: WNL HENT: Yes: WNL Neck: Yes: WNL Cardiovascular: Yes: Regular Rate and Rhythm, S1, S2 Respiratory: Yes: Wheezes (FEW WHEEZES) Gastrointestinal: Yes: Normal Bowel Sounds, Soft Extremities: Yes: WNL Edema: No Labs: CBC, BMP 02/11/18 06:00 02/11/18 06:00 INR, PTT INR 1.04 (0.82-1.09) 02/11/18 06:00 Problem List - Problems (1) Diabetes Code(s): E11.9 - TYPE 2 DIABETES MELLITUS WITHOUT COMPLICATIONS (2) Chest pain Code(s): R07.9 - CHEST PAIN, UNSPECIFIED (3) Cough Code(s): R05 - COUGH (4) HTN (hypertension) Code(s): I10 - ESSENTIAL (PRIMARY) HYPERTENSION Qualifiers: Hypertension type: essential hypertension Qualified Code(s): I10 - Essential (primary) hypertension (5) Unstable angina Code(s): I20.0 - UNSTABLE ANGINA (6) ASHD (arteriosclerotic heart disease) Code(s): I25.10 - ATHSCL HEART DISEASE OF [place] CORONARY ARTERY W/O ANG PCTRS Assessment/Plan IMP CP/DYSPNEA LIKEY UNSTABLE ANGINA COUGH/BRONCHOSPASM ? OBSTRUCTIVE AIRWAY DISEASE HTN DM PLAN PREDNISONE INHALED BRONCHODILATORS CARDIAC CATH TODAY HEPARIN PFTS OUTPATIENT DR VALE Problem List - Problems (1) Diabetes Code(s): E11.9 - TYPE 2 DIABETES MELLITUS WITHOUT COMPLICATIONS (2) Chest pain Code(s): R07.9 - CHEST PAIN, UNSPECIFIED (3) Cough Code(s): R05 - COUGH (4) HTN (hypertension) Code(s): I10 - ESSENTIAL (PRIMARY) HYPERTENSION Qualifiers: Hypertension type: essential hypertension Qualified Code(s): I10 - Essential (primary) hypertension (5) Unstable angina Code(s): I20.0 - UNSTABLE ANGINA (6) ASHD (arteriosclerotic heart disease) Code(s): I25.10 - ATHSCL HEART DISEASE OF [place] CORONARY ARTERY W/O ANG PCTRS
[2018-02-11] MEDS ORDERED: PT OWN MED DRAWER 7, Y5N ONE (10:43)
[2018-02-11] MEDS ORDERED: DOPAMINE 400 MG/D5W - 400,000 MCG/250 ML INFUS.BAG IVPB ONE (10:44)
[2018-02-11 11:34] VITALS: BP 159/74; PULSE 72; TEMP 98.6
== END 2018-02-11 10:53 | disposition short-term general hospital (02) | DRG 303 ==
LOC: JER 17:58 → JERBED 22:01 → J4W 02-09 02:01 → OBSVTOIN 02-09 14:16
PROVIDERS: ADMIT Internal Medicine; ATTEND Family Medicine
DX: I25.110 Atherosclerotic heart disease of native coronary artery with unstable angina pectoris (principal); N39.0 Urinary tract infection, site not specified; I45.2 Bifascicular block; E87.6 Hypokalemia; R07.89 Other chest pain; I25.2 Old myocardial infarction; E03.9 Hypothyroidism, unspecified; R53.1 Weakness; E78.5 Hyperlipidemia, unspecified; E11.42 Type 2 diabetes mellitus with diabetic polyneuropathy; I45.10 Unspecified right bundle-branch block; J40 Bronchitis, not specified as acute or chronic; I11.0 Hypertensive heart disease with heart failure; Z95.5 Presence of coronary angioplasty implant and graft
CPT/HCPCS: 36415; 71045-TC-FY; 80048; 80053; 80061; 81003; 81015; 82550; 82553; 82803; 82962; 83036; 83605; 83721; 83735; 83880; 84100; 84443; 84484; 85025; 85610; 85730; 87040; 87086; 87186; 93005; 93010; 94640; 99285-25; G0378; J1644

== ENCOUNTER 2018-03-13 13:19 | Emergency (ER) | payer OTHER ==
[2018-03-13 13:34] VITALS: BP 148/67; PULSE 61; TEMP 98.8; BMI 29.9
[2018-03-13] MEDS ORDERED: DIPHTH,PERTUSS(ACELL),TET 0.5 ML DISP.SYRIN IM ONE (14:18)
--- NOTE | 2018-03-13 14:20 | PDOC ---
History of Present Illness - General Chief Complaint: Laceration Stated Complaint: RT FINGER LACERATION Time Seen by Provider: 03/13/18 13:45 History Source: Patient Exam Limitations: No Limitations - History of Present Illness Initial Comments: 03/13/18 14:19 Was cutting vegetables slipped and incised webspace of right hand at second MCP. Has full range of motion index finger and thumb. Is taking Plavix so had difficult time stopping the bleeding. Occurred: reports: just prior to arrival Pain Location: reports: upper extremity (right habd at 2nd finger MCP) Past History - Past Medical History Allergies/Adverse Reactions: Allergies Allergy/AdvReac Type Severity Reaction Status Date / Time Iodinated Contrast- Oral and Allergy Verified 03/13/18 13:31 IV Dye Penicillins Allergy HIVES Verified 03/13/18 13:31 SWELLING Home Medications: Ambulatory Orders Aspirin [ASA -] 81 mg PO DAILY 07/09/17 Clopidogrel Bisulfate [Plavix] 75 mg PO 03/13/18 Anemia: No Asthma: No Cancer: No Cardiac Disorders: Yes ([place]) CVA: No COPD: No CHF: No DVT: No Dementia: No Diabetes: Yes GI Disorders: No Disorders: Yes (UTI) HTN: Yes Hypercholesterolemia: Yes Liver Disease: No Seizures: No Thyroid Disease: Yes (HYPOTHROIDISM) - Surgical History Abdominal Surgery: No Appendectomy: No Cardiac Surgery: Yes (STENTS X2) Cholecystectomy: No Lung Surgery: No Neurologic Surgery: No Orthopedic Surgery: Yes (LEFT KNEE SURGERY) - Immunization History Immunization Up to Date: Yes - Suicide/Smoking/Psychosocial Hx Smoking Status: No Smoking History: Former smoker Have you smoked in the past 12 months: No Number of Cigarettes Smoked Daily: 0 If you are a former smoker, when did you quit?: 1993 Information on smoking cessation initiated: No Hx Alcohol Use: No Drug/Substance Use Hx: No Substance Use Type: None Hx Substance Use Treatment: No *Physical Exam - Vital Signs Last Vital Signs Temp Pulse Resp BP Pulse Ox 98.8 F 61 17 148/67 96 03/13/18 13:31 03/13/18 13:31 03/13/18 13:31 03/13/18 13:31 03/13/18 13:31 - Physical Exam General Appearance: Yes: Nourished, Appropriately Dressed, Mild Distress HEENT: positive: HOMERO, Normal ENT Inspection, TMs Normal, Pharynx Normal Neck: positive: Supple. negative: Tender Respiratory/Chest: positive: Lungs Clear Gastrointestinal/Abdominal: positive: Soft Musculoskeletal: positive: Normal Inspection Extremity: positive: Normal Capillary Refill, Normal Range of Motion (he shouldn 't has full range of motion with strong flexion and extension against resistance. Neurovascular intact distal to injury. 0.2 cm at lateral aspect of right hand at second MCP), Tender Integumentary: positive: Normal Color, Dry, Pale Neurologic: positive: communications clerk II-XII NML intact, Fully Oriented, Alert, Normal Mood/ Affect, Normal Response, Motor Strength 5/5 Procedures - Laceration/Wound Repair Right Hand Wound Length: to 2.5 cm Wound Explored: clean Wound's Depth, Shape: into muscle, linear Irrigated w/ Saline: Yes Betadine Prep: Yes Anesthesia: 1% Lidocaine Wound Repaired With: Sutures Suture Size/Type: 5:0 Number of Sutures: 5 Layer Closure: No Sterile Dressing Applied: No Splint Applied: No Sling Applied: No Progress Note - Progress Note Progress Note: Hand laceration repaired, tetanus/diphtheria/pertussis booster updated today *DC/Admit/Observation/Transfer Diagnosis at time of Disposition: Laceration of hand Qualifiers: Encounter type: initial encounter Foreign body presence: without foreign body Laterality: right Qualified Code(s): S61.411A - Laceration without foreign body of right hand, initial encounter - Discharge Dispostion Disposition: HOME Condition at time of disposition: Stable Decision to Admit order: No - Referrals Referrals: Travis Ospina MD [Primary Care Provider] - - Patient Instructions Printed Discharge Instructions: DI for Laceration Repair Additional Instructions: Rest, elevate, avoid strenuous activity or heavy lifting until sutures are removed Leave dressing on for the next 24 hours, Then may remove dressing gently and wash area with soap and water. Reapply bacitracin ointment and dressing daily for the next 5 days On day #6 keep the wound protected and cover as needed until sutures are removed allowing wound to start to dry May use Tylenol or Motrin for pain relief Suture removal in : 10 - 12 Days Tetanus/diphtheria/pertussis booster was updated today - Post Discharge Activity Forms/Work/School Notes: Back to Work
== END 2018-03-13 15:00 | disposition home or self-care (01) ==
LOC: JERFT 13:19
PROC: 3E0234Z Introduction of Serum, Toxoid and Vaccine into Muscle, Percutaneous Approach (ICD-10-PCS; principal; 2018-03-13)
PROC: 0JQJ0ZZ Repair Right Hand Subcutaneous Tissue and Fascia, Open Approach (ICD-10-PCS; 2018-03-13)
DX: S61.411A Laceration without foreign body of right hand, initial encounter (principal); W26.0XXA Contact with knife, initial encounter; Y93.G1 Activity, food preparation and clean up; Y92.010 Kitchen of single-family (private) house as the place of occurrence of the external cause; Y99.8 Other external cause status; I25.10 Atherosclerotic heart disease of native coronary artery without angina pectoris; I10 Essential (primary) hypertension; Z95.5 Presence of coronary angioplasty implant and graft; Z87.891 Personal history of nicotine dependence; I25.2 Old myocardial infarction; E03.9 Hypothyroidism, unspecified; Z79.01 Long term (current) use of anticoagulants; Z79.82 Long term (current) use of aspirin
CPT/HCPCS: 90715; 99282-25

== ENCOUNTER 2020-04-28 13:03 | Emergency (ER) | payer OTHER ==
[2020-04-28 13:11] VITALS: BP 148/78; PULSE 90; TEMP 98.8; BMI 24.4
--- NOTE | 2020-04-28 14:47 | PDOC ---
History of Present Illness - General Chief Complaint: Injury Stated Complaint: FALL Time Seen by Provider: 04/28/20 13:14 - History of Present Illness Initial Comments: 04/28/20 14:43 74-year-old female with multiple comorbidities including coronary artery disease hypertension diabetes and dyslipidemia presents for evaluation of left knee pain after contusing her left knee into the door jam yesterday. Past History - Medical History Allergies/Adverse Reactions: Allergies Allergy/AdvReac Type Severity Reaction Status Date / Time Iodinated Contrast Media Allergy Verified 04/28/20 13:05 [Iodinated Contrast- Oral and IV Dye] Penicillins Allergy HIVES Verified 04/28/20 13:05 SWELLING Home Medications: Ambulatory Orders Aspirin [ASA -] 81 mg PO DAILY 07/09/17 Clopidogrel Bisulfate [Plavix] 75 mg PO 03/13/18 Anemia: No Asthma: No Cancer: No Cardiac Disorders: Yes ([place]) CVA: No COPD: No CHF: No DVT: No Dementia: No Diabetes: Yes GI Disorders: No Disorders: Yes (UTI) HTN: Yes Hypercholesterolemia: Yes Liver Disease: No Seizures: No Thyroid Disease: Yes (HYPOTHROIDISM) - Surgical History Abdominal Surgery: No Appendectomy: No Cardiac Surgery: Yes (STENTS X2) Cholecystectomy: No Lung Surgery: No Neurologic Surgery: No Orthopedic Surgery: Yes (LEFT KNEE SURGERY) - Immunization History Immunization Up to Date: Yes - Psycho-Social/Smoking History Smoking Status: No Smoking History: Never smoked Have you smoked in the past 12 months: No Number of Cigarettes Smoked Daily: 0 If you are a former smoker, when did you quit?: 1993 - Substance Abuse Hx (Audit-C & DAST Scrn) How often the patient has a drink containing alcohol: Never Score: In Men: 4 or > Positive; In Women: 3 or > Positive: 0 Screen Result (Pos requires Nsg. Audit-10AR): Negative In the last yr the pt used illegal drug/Rx for NonMed reason: No Score: Yes response is considered Positive: 0 Screen Result (Positive result requires Nsg. DAST-10): Negative Review of Systems - Review of Systems Musculoskeletal: Yes: Joint Pain *Physical Exam - Vital Signs Last Vital Signs Temp Pulse Resp BP Pulse Ox 98.8 F 90 18 148/78 100 04/28/20 13:06 04/28/20 13:06 04/28/20 13:06 04/28/20 13:06 04/28/20 13:06 - Physical Exam 04/28/20 14:48 There is a small superficial abrasion on the anterior aspect of the left knee. Range of motion 0-90 extensor mechanism is intact. Diffuse nonspecific tenderness medial and joint and lateral joint line tenderness. No gross instability thigh and calf are soft and nontender neurovascular intact no intra- articular effusion ED Treatment Course - RADIOLOGY Radiology Studies Ordered: Category Date Time Status KNEE 3 POS-LEFT [RAD] Stat Radiology 04/28/20 14:22 Taken Medical Decision Making - Medical Decision Making 04/28/20 14:49 Osteoarthritis left knee on radiograph today. No evidence of fracture or trauma. Weight-bear as tolerated with crutches follow-up with orthopedic surgery Discharge - Discharge Information Problems reviewed: Yes Clinical Impression/Diagnosis: Contusion of left knee Condition: Stable Disposition: HOME - Admission No - Follow up/Referral Referrals: Travis Ospina MD [Primary Care Provider] - Jose Hairston DO [Staff Physician] - - Patient Discharge Instructions Additional Instructions: You may weight-bear as tolerated with crutches. Without fail follow-up with orthopedic surgery in 2 to 3 days for further evaluation and treatment options. Tylenol for pain. Return to the emergency room for worsening symptoms. - Post Discharge Activity
== END 2020-04-28 15:01 | disposition home or self-care (01) ==
LOC: JERFT 13:03 → JER 13:03
DX: S80.02XA Contusion of left knee, initial encounter (principal); W22.8XXA Striking against or struck by other objects, initial encounter
CPT/HCPCS: 73562-TC-LT-FY; 99283-25

== ENCOUNTER 2020-07-13 16:10 | Emergency (ER) | payer OTHER ==
[2020-07-13 16:16] VITALS: BP 142/65; PULSE 83; TEMP 100.2; BMI 25.0
--- NOTE | 2020-07-13 16:17 | PDOC ---
Rapid Medical Evaluation Chief Complaint: Toothache Time Seen by Provider: 07/13/20 16:13 Medical Evaluation: Allergies Allergy/AdvReac Type Severity Reaction Status Date / Time Iodinated Contrast Media Allergy Verified 07/13/20 16:13 [Iodinated Contrast- Oral and IV Dye] Penicillins Allergy HIVES Verified 07/13/20 16:13 SWELLING 07/13/20 16:14 I have performed a brief in-person evaluation of this patient. The patient presents with a chief complaint of: Dental pain since this AM with swelling to face. h/o DM and cardiac stent. Pertinent physical exam findings: mild periodontal swelling to upper left premolars with swelling to left side of face. no skin erythema. Low grade temp 100.2F I have ordered the following: deferred The patient will proceed to the ED for further evaluation. Discharge Disposition - Diagnosis Periodontitis - Discharge Dispostion Condition at time of disposition: Stable - Referrals - Patient Instructions - Post Discharge Activity
[2020-07-13] MEDS ORDERED: CLINDAMYCIN IVPB 300 MG in DEXTROSE 5%-WATER - 48 ML IVPB ONE (16:58)
[2020-07-13] MEDS ORDERED: CLINDAMYCIN 600MG PREMIX IVPB 600 MG/50 ML BAG IVPB ONE ×2 (17:22→17:36)
[2020-07-13] MEDS ORDERED: ACETAMINOPHEN 325 MG TABLET (FP) ONE (17:40)
[2020-07-13] MEDS ORDERED: ACETAMINOPHEN 500 MG TABLET (FP) PO ONE (17:40)
[2020-07-13 17:48] LABS: BASO % 0.7 % (0-2.0); HEMATOCRIT 41.3 % (32.4-45.2); HEMOGLOBIN 13.9 GM/dL (10.7-15.3); LYMPH % 10.5 % (8-40); MCH 31.8 pg (25.7-33.7); MCHC 33.7 g/dl (32.0-36.0); MEAN CELL VOLUME 94.4 fl (80-96); MONO % 10.3 % (3.8-10.2); NEUT % 78.5 % (42.8-82.8); PLATELET COUNT 182 K/MM3 (134-434); RBC 4.38 M/mm3 (3.60-5.2); RDW 13.2 % (11.6-15.6); WHITE BLOOD COUNT 12.6 K/mm3 (4.0-10.0)
[2020-07-13 17:54] LABS: INR 1.08 (0.83-1.09); PROTHROMBIN TIME (PATIENT) 12.7 SEC (9.7-13.0)
[2020-07-13 18:26] LABS: ALBUMIN 3.6 g/dl (3.4-5.0); BILIRUBIN,TOTAL 1.2 mg/dL (0.2-1); BLOOD UREA NITROGEN 9.9 mg/dL (7-18); CALCIUM 9.3 mg/dL (8.5-10.1); CREATININE 1.1 mg/dL (0.55-1.3); POTASSIUM 4.4 mmol/L (3.5-5.1); TOT PROT 7.1 g/dl (6.4-8.2)
[2020-07-13] MEDS ORDERED: INSULIN REGULAR HUMAN 100 UNITS/ML *VIAL IVPUSH ONE ×2 (18:59→20:05)
--- NOTE | 2020-07-13 20:15 | PDOC ---
History of Present Illness - General Chief Complaint: Toothache Stated Complaint: TOOTH PAIN Time Seen by Provider: 07/13/20 16:13 - History of Present Illness Initial Comments: 07/13/20 20:07 74-year-old female presents for evaluation of toothache x1 day past medical history of coronary artery disease with stents as well as diabetes Past History - Medical History Allergies/Adverse Reactions: Allergies Allergy/AdvReac Type Severity Reaction Status Date / Time Iodinated Contrast Media Allergy Verified 07/13/20 16:13 [Iodinated Contrast- Oral and IV Dye] Penicillins Allergy HIVES Verified 07/13/20 16:13 SWELLING Home Medications: Ambulatory Orders Aspirin [ASA -] 81 mg PO DAILY 07/09/17 Clopidogrel Bisulfate [Plavix] 75 mg PO 03/13/18 Clindamycin [Cleocin -] 300 mg PO TID #21 capsule 07/13/20 Anemia: No Asthma: No Cancer: No Cardiac Disorders: Yes (HI) CVA: No COPD: No CHF: No DVT: No Dementia: No Diabetes: Yes GI Disorders: No Disorders: Yes (UTI) HTN: Yes Hypercholesterolemia: Yes Liver Disease: No Seizures: No Thyroid Disease: Yes (HYPOTHROIDISM) - Surgical History Abdominal Surgery: No Appendectomy: No Cardiac Surgery: Yes (STENTS X2) Cholecystectomy: No Lung Surgery: No Neurologic Surgery: No Orthopedic Surgery: Yes (LEFT KNEE SURGERY) - Immunization History Immunization Up to Date: Yes - Psycho-Social/Smoking History Smoking Status: No Smoking History: Never smoked Have you smoked in the past 12 months: No Number of Cigarettes Smoked Daily: 0 If you are a former smoker, when did you quit?: 1993 - Substance Abuse Hx (Audit-C & DAST Scrn) How often the patient has a drink containing alcohol: Never Score: In Men: 4 or > Positive; In Women: 3 or > Positive: 0 Screen Result (Pos requires Nsg. Audit-10AR): Negative In the last yr the pt used illegal drug/Rx for NonMed reason: No Score: Yes response is considered Positive: 0 Screen Result (Positive result requires Nsg. DAST-10): Negative Review of Systems - Review of Systems Constitutional: Yes: Fever HEENTM: Yes: Dental Problems *Physical Exam - Vital Signs Last Vital Signs Temp Pulse Resp BP Pulse Ox 100.2 F H 83 20 142/65 100 07/13/20 16:15 07/13/20 16:15 07/13/20 16:15 07/13/20 16:15 07/13/20 16:15 - Physical Exam General Appearance: Yes: Nourished, Appropriately Dressed. No: Apparent Distress HEENT: positive: Symmetrical, Other (There is left-sided facial swelling no areas of fluctuance on the left upper gums exquisite tenderness. Left cheek and face skin color and temperature otherwise normal with a moderate amount of swelling) Neck: positive: Supple. negative: Lymphadenopathy (R), Lymphadenopathy (L) Respiratory/Chest: positive: Normal Breath Sounds. negative: Respiratory Distress Integumentary: positive: Normal Color, Dry Neurologic: positive: Fully Oriented ED Treatment Course - LABORATORY CBC & Chemistry Diagram: 07/13/20 17:13 07/13/20 17:13 - ADDITIONAL ORDERS Additional order review: Laboratory Results 07/13/20 07/13/20 07/13/20 20:01 17:13 17:13 PT with INR 12.70 INR 1.08 Sodium 132 L Potassium 4.4 Chloride 93 L Carbon Dioxide 28 Anion Gap 11 BUN 9.9 Creatinine 1.1 Est GFR (CKD-EPI)AfAm 56.48 Est GFR (CKD-EPI)NonAf 48.73 POC Glucometer 324 Random Glucose 356 H Calcium 9.3 Total Bilirubin 1.2 H AST 13 L ALT 19 Alkaline Phosphatase 114 Total Protein 7.1 Albumin 3.6 07/13/20 07/13/20 20:01 17:13 RBC 4.38 MCV 94.4 MCHC 33.7 RDW 13.2 MPV 8.0 Neutrophils % 78.5 Lymphocytes % 10.5 Monocytes % 10.3 H D Eosinophils % 0.0 Basophils % 0.7 POC Glucometer 324 - RADIOLOGY Radiology Studies Ordered: Category Date Time Status FACIAL BONES CT W/O CONTRAST [CT] Stat CT Scan 07/13/20 07:45 Completed - Medications Given in the ED: ED Medications Discontinued Medications Generic Name Dose Route Start Last Admin Trade Name Freq PRN Reason Stop Dose Admin Acetaminophen 650 mg 07/13/20 17:40 07/13/20 17:42 Tylenol - PO 07/13/20 17:41 650 mg ONCE ONE Administration Clindamycin Phosphate 300 mg/ 50 mls @ 100 mls/hr 07/13/20 16:58 07/13/20 17:35 Dextrose IVPB 07/13/20 17:27 Not Given ONCE ONE Clindamycin Phosphate 600 mg in 50 mls @ 100 mls/hr 07/13/20 17:36 07/13/20 17:39 Cleocin 600 Mg Premix Ivpb - IVPB 07/13/20 18:05 100 mls/hr ONCE ONE Administration Insulin Human Regular 6 units 07/13/20 20:05 07/13/20 20:05 Novolin R Vial *For Ivpush Or Iv Drip Only* IVPUSH 07/13/20 20:06 6 units ONCE ONE Administration Medical Decision Making - Medical Decision Making 07/13/20 20:09 Patient was evaluated by emergency room attending as well. Okay to go home with hyponatremia Tylenol for fever p.o. clindamycin with close dental follow-up tomorrow without fail or return to the emergency room should symptoms not improve or follow-up not obtained. Blood sugar treated I have reviewed the pathophysiology with the patient. They are in agreement wit h the treatment plan all questions were answered to their satisfaction. Understanding for follow-up without fail was also conveyed to the patient. Again they are in agreement. Discharge - Discharge Information Problems reviewed: Yes Clinical Impression/Diagnosis: Pain, dental Clinical Impression/Diagnosis: (Ruled Out): Periodontitis Condition: Stable Disposition: HOME - Admission No - Additional Discharge Information Prescriptions: Clindamycin [Cleocin -] 300 mg PO TID #21 capsule - Follow up/Referral Referrals: Travis Ospina MD [Primary Care Provider] - [facility] - Patient Discharge Instructions Additional Instructions: Return to the emergency room tomorrow without fail for further evaluation if you cannot see a dentist. Please take the antibiotics as directed. Without fail follow-up with dentist tomorrow. You may take Tylenol as directed for pain. You must also follow-up with your primary care physician as well for management of your diabetes. Your blood sugar is poorly controlled.Follow-up in 1 day without fail again if you cannot follow-up tomorrow with both your dentist as well as your primary care physician you need to return to the emergency room without fail - Post Discharge Activity
== END 2020-07-13 21:43 | disposition home or self-care (01) ==
LOC: JERFT 16:10
PROC: 3E013VG Introduction of Insulin into Subcutaneous Tissue, Percutaneous Approach (ICD-10-PCS; principal; 2020-07-13)
PROC: 3E033GC Introduction of Other Therapeutic Substance into Peripheral Vein, Percutaneous Approach (ICD-10-PCS; 2020-07-13)
DX: K08.89 Other specified disorders of teeth and supporting structures (principal)
CPT/HCPCS: 36415; 70486-TC; 80053; 82962; 85025; 85610; 99285-25

== ENCOUNTER 2022-02-11 11:37 | Inpatient (IN) | payer OTHER ==
[2022-02-11 12:02] VITALS: BMI 25.7
[2022-02-11] MEDS ORDERED: ONDANSETRON 4 MG/2 ML VIAL IVPB ONE (13:48)
[2022-02-11] MEDS ORDERED: ACETAMINOPHEN 1000 MG/100 ML BAG IVPB ONE (13:48)
[2022-02-11] MEDS ORDERED: SODIUM CHLORIDE 0.9% 500 ML INFUS.BAG IV ONE (13:48)
[2022-02-11] MEDS ORDERED: FAMOTIDINE 20 MG/50 ML IVPB 20 MG/50 ML MG IVPB ONE ×2 (13:49→13:55)
[2022-02-11] MEDS ORDERED: MAG HYDROX/AL HYDROX/SIMETH 30 ML UNIT-DOSE CUP PO ONE (13:49)
[2022-02-11] MEDS ORDERED: ACETAMINOPHEN INJECTION 100 ML IVPB ONE (13:54)
[2022-02-11] MEDS ORDERED: MAG HYDROX/AL HYDROX/SIMETH 30 ML UNIT-DOSE CUP ONE (13:54)
[2022-02-11] MEDS ORDERED: ONDANSETRON 4 MG/2 ML VIAL ONE (13:55)
[2022-02-11] MEDS ORDERED: LIDOCAINE 5% TOPICAL PATCH TP ONE (13:57)
[2022-02-11] MEDS ORDERED: LIDOCAINE 5% TOPICAL PATCH ONE (14:19)
[2022-02-11 14:27] LABS: BASO % 0.9 % (0-2.0); EOS % 0.4 % (0-4.5); HEMATOCRIT 38.7 % (32.4-45.2); HEMOGLOBIN 13.2 GM/dL (10.7-15.3); LYMPH % 10.6 % (8-40); MCH 31.6 pg (25.7-33.7); MCHC 34.2 g/dl (32.0-36.0); MEAN CELL VOLUME 92.2 fl (80-96); MEAN PLT VOLUME 7.6 fl (7.5-11.1); MONO % 10.4 % (3.8-10.2); NEUT % 77.7 % (42.8-82.8); PLATELET COUNT 170 10^3/uL (134-434); RDW 13.2 % (11.6-15.6)
[2022-02-11] MEDS: SODIUM CHLORIDE 0.9% 500 ML INFUS.BAG IV ONE ×2 (14:29→14:44)
[2022-02-11 14:32] LABS: INR 1.1 (0.83-1.09); PROTHROMBIN TIME (PATIENT) 12.7 SEC (9.7-13.0)
[2022-02-11 14:34] LABS: URINE APPEARANCE CLEAR; URINE BILIRUBIN NEGATIVE (NEGATIVE); URINE COLOR YELLOW; URINE GLUCOSE (UA) 3+ (NEGATIVE); URINE KETONE 1+ (NEGATIVE); URINE LEUK ESTERASE NEGATIVE (NEGATIVE); URINE NITRITE NEGATIVE (NEGATIVE); URINE PROTEIN NEGATIVE (NEGATIVE); URINE UROBILINOGEN 0.2 mg/dL (0.2-1.0)
[2022-02-11 14:35] LABS: ACTIVATED PTT 27.3 SECONDS (25.2-36.5)
[2022-02-11 14:50] LABS: CHLORIDE 91 mmol/L (98-107); SODIUM 129 mmol/L (136-145)
[2022-02-11 14:54] LABS: ALBUMIN 3.1 g/dl (3.4-5.0); ANION GAP 11 MMOL/L (8-16); BLOOD UREA NITROGEN 24.6 mg/dL (7-18); CO2 27 mmol/L (21-32); LIPASE 95 U/L (73-393)
[2022-02-11 14:56] LABS: CREATININE 1.2 mg/dL (0.55-1.3); SGOT/AST 16 U/L (15-37); SGPT/ALT 14 U/L (13-61)
[2022-02-11 14:58] LABS: TOT PROT 6.8 g/dl (6.4-8.2)
[2022-02-11 14:59] LABS: ALK PHOS 79 U/L (45-117)
[2022-02-11 15:02] LABS: GLUCOSE,RANDOM 413 mg/dL (74-106)
[2022-02-11] MEDS ORDERED: METHOCARBAMOL 500 MG TABLET PO ONE (16:06)
[2022-02-11] MEDS ORDERED: METHOCARBAMOL 500 MG TABLET ONE (16:14)
[2022-02-11] MEDS ORDERED: INSULIN REGULAR HUMAN 100 UNITS/ML *VIAL SQ ONE (16:24)
[2022-02-11] MEDS ORDERED: INSULIN SLIDING SCALE (NOVOLOG) 1 VIAL SQ SCH (16:30)
[2022-02-11] MEDS ORDERED: KETOROLAC TROMETHAMINE 15 MG/ML VIAL IVPUSH ONE (19:51)
[2022-02-11] MEDS ORDERED: KETOROLAC TROMETHAMINE 15 MG/ML VIAL ONE (20:20)
[2022-02-11] MEDS ORDERED: PIPERACILLIN/TAZOB 3.375 GM 3.375 GM in DEXTROSE 5%-WATER - 50 ML IVPB ONE (21:06)
[2022-02-11] MEDS ORDERED: PIPERACILLIN/TAZOB 3.375 GM 3.375 GM/50 ML BAG IVPB ONE (21:13)
[2022-02-11] MEDS ORDERED: LIDOCAINE PATCH REMOVAL MC SCH (22:00)
[2022-02-11] MEDS ORDERED: SODIUM CHLORIDE 1,000 ML IV SCH (22:30)
[2022-02-11] MEDS ORDERED: DEXTROSE 5%-0.45% SALINE 1,000 ML IV SCH ×2 (22:30→23:45)
[2022-02-11 22:42] LABS: CALCIUM 8.1 mg/dL (8.5-10.1)
[2022-02-11 22:44] LABS: BLOOD UREA NITROGEN 23.5 mg/dL (7-18)
[2022-02-11 22:46] LABS: CREATININE 1.1 mg/dL (0.55-1.3)
[2022-02-11] MEDS ORDERED: ACETAMINOPHEN 1000 MG/100 ML BAG IVPB PRN (23:55)
[2022-02-12 03:32] VITALS: BP 152/78; PULSE 79; TEMP 98.9
[2022-02-12 16:07] LABS: SARS-CoV-2 NAA Not Detected (Not Detected)
== END 2022-02-12 01:50 | disposition left against medical advice (07) | DRG 445 ==
LOC: JER 11:37 → JERBED 21:34 → J5S 02-12 01:39
PROVIDERS: ADMIT Internal Medicine; ATTEND Family Medicine
DX: K81.0 Acute cholecystitis (principal); E87.1 Hypo-osmolality and hyponatremia; I10 Essential (primary) hypertension; I25.2 Old myocardial infarction; E78.5 Hyperlipidemia, unspecified; I25.10 Atherosclerotic heart disease of native coronary artery without angina pectoris; Z88.0 Allergy status to penicillin; Z53.29 Procedure and treatment not carried out because of patient's decision for other reasons; E03.9 Hypothyroidism, unspecified; E11.65 Type 2 diabetes mellitus with hyperglycemia; M54.9 Dorsalgia, unspecified; E11.40 Type 2 diabetes mellitus with diabetic neuropathy, unspecified; E86.9 Volume depletion, unspecified
CPT/HCPCS: 36415; 71045-TC-FY; 72131-TC; 74176-TC; 76705-TC; 80048; 80053; 81003; 82962; 83605; 83690; 84484; 85025; 85610; 85730; 87077; 87086; 93005; 93010; 99285-25; C9803-CS; U0003; U0005

== ENCOUNTER 2022-05-18 15:58 | Emergency (ER) | payer OTHER ==
[2022-05-18 16:24] VITALS: BP 116/86; PULSE 59; TEMP 98.1; BMI 25.0
[2022-05-18] MEDS ORDERED: ACETAMINOPHEN 500 MG TABLET (FP) PO ONE (17:23)
[2022-05-18] MEDS ORDERED: LIDOCAINE 5% TOPICAL PATCH TP ONE (17:23)
[2022-05-18] MEDS ORDERED: ACETAMINOPHEN 325 MG TABLET (FP) ONE (17:41)
[2022-05-18] MEDS ORDERED: LIDOCAINE 5% TOPICAL PATCH ONE (17:42)
[2022-05-18 18:06] LABS: BASO % 0.5 % (0-2.0); EOS % 1.6 % (0-4.5); HEMATOCRIT 39.3 % (32.4-45.2); HEMOGLOBIN 13.3 GM/dL (10.7-15.3); LYMPH % 24.6 % (8-40); MCH 30.9 pg (25.7-33.7); MCHC 33.9 g/dl (32.0-36.0); MEAN CELL VOLUME 91.1 fl (80-96); MEAN PLT VOLUME 7.3 fl (7.5-11.1); MONO % 9.4 % (3.8-10.2); NEUT % 63.9 % (42.8-82.8); PLATELET COUNT 208 10^3/uL (134-434); RBC 4.31 M/mm3 (3.60-5.2); WHITE BLOOD COUNT 7.2 K/mm3 (4.0-10.0)
[2022-05-18 18:26] LABS: BLOOD UREA NITROGEN 19.6 mg/dL (7-18)
[2022-05-18 18:29] LABS: CREATININE 1.1 mg/dL (0.55-1.3)
[2022-05-18 18:31] LABS: BILIRUBIN,TOTAL 0.5 mg/dL (0.2-1); TOT PROT 7.4 g/dl (6.4-8.2)
[2022-05-18] MEDS ORDERED: KETOROLAC TROMETHAMINE 15 MG/ML VIAL IVPUSH ONE (18:39)
[2022-05-18] MEDS ORDERED: KETOROLAC TROMETHAMINE 15 MG/ML VIAL ONE (18:48)
[2022-05-18 18:57] LABS: EPI CELLS 16 /uL (0-25.1); HYALINE CASTS 0 /uL (0-3.1); URINE APPEARANCE CLEAR; URINE BACTERIA 58 /uL (0-1359); URINE BILIRUBIN NEGATIVE (NEGATIVE); URINE COLOR YELLOW; URINE GLUCOSE (UA) NEGATIVE (NEGATIVE); URINE KETONE NEGATIVE (NEGATIVE); URINE LEUK ESTERASE 1+ (NEGATIVE); URINE NITRITE NEGATIVE (NEGATIVE); URINE PROTEIN NEGATIVE (NEGATIVE); URINE RBC 5 /uL (0-23.9); URINE UROBILINOGEN 0.2 mg/dL (0.2-1.0); URINE WBC 43 /uL (0-25.8)
[2022-05-18] MEDS ORDERED: LIDOCAINE PATCH REMOVAL MC SCH (22:00)
== END 2022-05-18 21:02 | disposition home or self-care (01) ==
LOC: JER 15:58
PROC: 3E0333Z Introduction of Anti-inflammatory into Peripheral Vein, Percutaneous Approach (ICD-10-PCS; principal; 2022-05-18)
DX: M54.50 Low back pain, unspecified (principal)
CPT/HCPCS: 36415; 72170-TC-FY; 73502-TC-LT-FY; 80053; 81003; 85025; 87077; 87086; 99284-25

== ENCOUNTER 2022-09-06 04:43 | Day surgery (SDC) | payer OTHER ==
[2022-09-04 18:02] VITALS: BMI 24.6
[~2022-09-06 04:43] MED LIST: ACETAMINOPHEN 325 MG TABLET (FP) PO PRN; BSS (NA/CA/MG/K) BALANCED SALT SOLUTION OPHTH SOLN 15 ML BOTTLE OS ONE; BUPIVACAINE HCL/PF 0.75% 10 ML VIAL PNB ONE; CHONDROITIN SU A/HYALUR SOD 1 KIT IO ONE; CYCLOPENTOLATE HCL 1% OPHTH SOLN 2 ML BOTTLE OP SCH; EPINEPHrine/PF 1 MG/1 ML (1:1,000) AMPULE SQ ONE; KETOROLAC TROMETHAMINE 0.5% EYE DROP 1 DROP DROPS OP SCH; LIDOCAINE 1% P/F 10 MG/ML VIAL PNB ONE; LIDOCAINE HCL/PF 2% SDV 5ML VIAL PNB ONE; OFLOXACIN 0.3% OPHTHALMIC SOLUTION 5 ML BOTTLE OP SCH; PHENYLEPHRINE 2.5% OPHTH SOLN 15 ML BOTTLE OP SCH; POVIDONE-IODINE 5% OPHTHALMIC PREP 30 ML SOLUTION OS ONE; TETRACAINE 0.5% OPHTH SOLN 2 ML BOTTLE OS ONE; TROPICAMIDE 1% OPHTH SOLN 15 ML BOTTLE OP SCH; TRYPAN BLUE 0.5 ML DISP.SYRIN IO ONE
[2022-09-06] MEDS ORDERED: PHENYLEPHRINE 2.5% OPHTH SOLN 15 ML BOTTLE ONE (11:22)
[2022-09-06] MEDS ORDERED: KETOROLAC TROMETHAMINE 0.5% EYE DROP 1 DROP DROPS ONE (11:23)
[2022-09-06] MEDS ORDERED: OFLOXACIN 0.3% OPHTHALMIC SOLUTION 5 ML BOTTLE ONE (11:23)
[2022-09-06] MEDS ORDERED: CYCLOPENTOLATE HCL 1% OPHTH SOLN 2 ML BOTTLE ONE (11:23)
[2022-09-06] MEDS ORDERED: TROPICAMIDE 1% OPHTH SOLN 15 ML BOTTLE ONE (11:23)
[2022-09-06] MEDS ORDERED: PROPOFOL 20 ML ONE (11:44)
[2022-09-06] MEDS ORDERED: OFLOXACIN 0.3% OPHTHALMIC SOLUTION 5 ML BOTTLE OS ONE ×3 (11:48→11:58)
[2022-09-06] MEDS ORDERED: TROPICAMIDE 1% OPHTH SOLN 15 ML BOTTLE OS ONE ×3 (11:48→11:58)
[2022-09-06] MEDS ORDERED: PHENYLEPHRINE 2.5% OPHTH SOLN 15 ML BOTTLE OS ONE ×3 (11:48→11:58)
[2022-09-06] MEDS ORDERED: CYCLOPENTOLATE HCL 1% OPHTH SOLN 2 ML BOTTLE OS ONE ×3 (11:48→11:58)
[2022-09-06] MEDS ORDERED: KETOROLAC TROMETHAMINE 0.5% EYE DROP 1 DROP DROPS OS ONE ×3 (11:48→11:58)
[2022-09-06] MEDS ORDERED: BUPIVACAINE HCL/PF 0.75% 10 ML VIAL PNB ONE (12:29)
[2022-09-06] MEDS ORDERED: LIDOCAINE HCL/PF 2% SDV 5ML VIAL PNB ONE (12:29)
[2022-09-06] MEDS ORDERED: POVIDONE-IODINE 5% OPHTHALMIC PREP 30 ML SOLUTION OS ONE (12:32)
[2022-09-06] MEDS ORDERED: BSS (NA/CA/MG/K) BALANCED SALT SOLUTION OPHTH SOLN 15 ML BOTTLE OS ONE (12:35)
[2022-09-06] MEDS ORDERED: LIDOCAINE 1% P/F 10 MG/ML VIAL PNB ONE (12:36)
[2022-09-06] MEDS ORDERED: CHONDROITIN SU A/HYALUR SOD 1 KIT IO ONE (12:37)
[2022-09-06] MEDS ORDERED: EPINEPHrine/PF 1 MG/1 ML (1:1,000) AMPULE SQ ONE (12:43)
[2022-09-06 14:14] VITALS: RESP 18
[2022-09-06 14:24] VITALS: BP 147/72; PULSE 65; TEMP 97.9
== END 2022-09-06 14:10 | disposition home or self-care (01) ==
LOC: JASU-SURG 04:43
PROVIDERS: ATTEND Ophthalmology
PROC: 08RK3JZ Replacement of Left Lens with Synthetic Substitute, Percutaneous Approach (ICD-10-PCS; principal; 2022-09-06 12:00)
DX: H26.9 Unspecified cataract (principal)
CPT/HCPCS: 82962; C9803-CS; U0003; U0005

== ENCOUNTER 2022-09-20 04:31 | Day surgery (SDC) | payer OTHER ==
[2022-09-18 12:45] VITALS: BMI 24.6
[~2022-09-20 04:31] MED LIST changes: -BSS (NA/CA/MG/K) BALANCED SALT SOLUTION OPHTH SOLN 15 ML BOTTLE OS ONE; -BUPIVACAINE HCL/PF 0.75% 10 ML VIAL PNB ONE; -CHONDROITIN SU A/HYALUR SOD 1 KIT IO ONE; -CYCLOPENTOLATE HCL 1% OPHTH SOLN 2 ML BOTTLE OP SCH; -EPINEPHrine/PF 1 MG/1 ML (1:1,000) AMPULE SQ ONE; -KETOROLAC TROMETHAMINE 0.5% EYE DROP 1 DROP DROPS OP SCH; -LIDOCAINE 1% P/F 10 MG/ML VIAL PNB ONE; -LIDOCAINE HCL/PF 2% SDV 5ML VIAL PNB ONE; -OFLOXACIN 0.3% OPHTHALMIC SOLUTION 5 ML BOTTLE OP SCH; -PHENYLEPHRINE 2.5% OPHTH SOLN 15 ML BOTTLE OP SCH; -POVIDONE-IODINE 5% OPHTHALMIC PREP 30 ML SOLUTION OS ONE; -TETRACAINE 0.5% OPHTH SOLN 2 ML BOTTLE OS ONE; -TROPICAMIDE 1% OPHTH SOLN 15 ML BOTTLE OP SCH; -TRYPAN BLUE 0.5 ML DISP.SYRIN IO ONE
[2022-09-20] MEDS: PHENYLEPHRINE 2.5% OPHTH SOLN 15 ML BOTTLE OP SCH ×3 (10:15→10:25)
[2022-09-20] MEDS: OFLOXACIN 0.3% OPHTHALMIC SOLUTION 5 ML BOTTLE OP SCH ×3 (10:15→10:25)
[2022-09-20] MEDS: TROPICAMIDE 1% OPHTH SOLN 15 ML BOTTLE OP SCH ×3 (10:15→10:25)
[2022-09-20] MEDS: CYCLOPENTOLATE HCL 1% OPHTH SOLN 2 ML BOTTLE OP SCH ×3 (10:15→10:25)
[2022-09-20] MEDS: KETOROLAC TROMETHAMINE 0.5% EYE DROP 1 DROP DROPS OP SCH ×3 (10:15→10:25)
[2022-09-20] MEDS ORDERED: CYCLOPENTOLATE HCL 1% OPHTH SOLN 2 ML BOTTLE ONE (10:43)
[2022-09-20] MEDS ORDERED: TROPICAMIDE 1% OPHTH SOLN 15 ML BOTTLE ONE (10:43)
[2022-09-20] MEDS ORDERED: KETOROLAC TROMETHAMINE 0.5% EYE DROP 1 DROP DROPS ONE (10:43)
[2022-09-20] MEDS ORDERED: PHENYLEPHRINE 2.5% OPHTH SOLN 15 ML BOTTLE ONE (10:43)
[2022-09-20] MEDS ORDERED: OFLOXACIN 0.3% OPHTHALMIC SOLUTION 5 ML BOTTLE ONE (10:44)
[2022-09-20] MEDS ORDERED: OFLOXACIN 0.3% OPHTHALMIC SOLUTION 5 ML BOTTLE OP SCH (11:00)
[2022-09-20] MEDS ORDERED: TROPICAMIDE 1% OPHTH SOLN 15 ML BOTTLE OP SCH (11:00)
[2022-09-20] MEDS ORDERED: KETOROLAC TROMETHAMINE 0.5% EYE DROP 1 DROP DROPS OP SCH (11:00)
[2022-09-20] MEDS ORDERED: PHENYLEPHRINE 2.5% OPHTH SOLN 15 ML BOTTLE OP SCH (11:00)
[2022-09-20] MEDS ORDERED: CYCLOPENTOLATE HCL 1% OPHTH SOLN 2 ML BOTTLE OP SCH (11:00)
[2022-09-20 11:06] VITALS: RESP 20
[2022-09-20] MEDS ORDERED: BUPIVACAINE HCL/PF 0.75% 10 ML VIAL RB ONE (12:14)
[2022-09-20] MEDS ORDERED: LIDOCAINE HCL/PF 2% SDV 5ML VIAL INF ONE (12:14)
[2022-09-20] MEDS ORDERED: POVIDONE-IODINE 5% OPHTHALMIC PREP 30 ML SOLUTION OD ONE (12:19)
[2022-09-20] MEDS ORDERED: LIDOCAINE HCL 1% PRESERVATIVE FREE - 30ML VIAL IO ONE (12:23)
[2022-09-20] MEDS ORDERED: BSS (NA/CA/MG/K) BALANCED SALT SOLUTION OPHTH SOLN 15 ML BOTTLE OD ONE (12:23)
[2022-09-20] MEDS ORDERED: CHONDROITIN SU A/HYALUR SOD 1 KIT IO ONE (12:24)
[2022-09-20] MEDS ORDERED: EPINEPHrine/PF 1 MG/1 ML (1:1,000) AMPULE SQ ONE (12:33)
[2022-09-20 17:58] VITALS: BP 114/63; PULSE 57; TEMP 97.3
== END 2022-09-20 13:48 | disposition home or self-care (01) ==
LOC: JASU-SURG 04:31
PROVIDERS: ATTEND Ophthalmology
PROC: 08RJ3JZ Replacement of Right Lens with Synthetic Substitute, Percutaneous Approach (ICD-10-PCS; principal; 2022-09-20 12:00)
DX: H26.9 Unspecified cataract (principal)
CPT/HCPCS: 82962; V2632

== ENCOUNTER 2023-11-27 09:11 | Emergency (ER) | payer OTHER ==
[2023-11-27 09:17] VITALS: BP 130/64; PULSE 72; RESP 16; TEMP 98.3; BMI 26.6
[2023-11-27] MEDS ORDERED: ACETAMINOPHEN 1000 MG/100 ML BAG IVPB ONE (09:56)
[2023-11-27] MEDS ORDERED: ACETAMINOPHEN INJECTION 100 ML IVPB ONE (10:13)
[2023-11-27 10:43] LABS: BASO % 0.6 % (0-2.0); EOS % 1.9 % (0-4.5); LYMPH % 18.5 % (8-40); MCH 31.7 pg (25.7-33.7); MCHC 33.3 g/dl (32.0-36.0); MEAN CELL VOLUME 95.1 fl (80-96); MONO % 9.1 % (3.8-10.2); NEUT % 69.9 % (42.8-82.8); PLATELET COUNT 201 10^3/uL (134-434); RDW 14.4 % (11.6-15.6); WHITE BLOOD COUNT 9.2 K/mm3 (4.0-10.0)
[2023-11-27 11:15] LABS: POTASSIUM 4.9 mmol/L (3.5-5.1)
[2023-11-27 11:17] LABS: BLOOD UREA NITROGEN 26.4 mg/dL (7-18)
[2023-11-27 11:20] LABS: CREATININE 1.4 mg/dL (0.55-1.3)
[2023-11-27 11:22] LABS: BILIRUBIN,TOTAL 0.4 mg/dL (0.2-1); TOT PROT 7.4 g/dl (6.4-8.2)
[2023-11-27] MEDS ORDERED: LACTATED RINGERS SOLUTION 1000 ML INFUS.BAG IV ONE (12:20)
[2023-11-27 14:00] LABS: EPI CELLS 13 /uL (0-25.1); HYALINE CASTS 0 /uL (0-3.1); URINE APPEARANCE CLEAR; URINE BACTERIA 28 /uL (0-1359); URINE BILIRUBIN NEGATIVE (NEGATIVE); URINE COLOR YELLOW; URINE GLUCOSE (UA) 3+ (NEGATIVE); URINE KETONE NEGATIVE (NEGATIVE); URINE LEUK ESTERASE 1+ (NEGATIVE); URINE NITRITE NEGATIVE (NEGATIVE); URINE PROTEIN NEGATIVE (NEGATIVE); URINE RBC 11 /uL (0-23.9); URINE UROBILINOGEN 0.2 mg/dL (0.2-1.0); URINE WBC 30 /uL (0-25.8)
== END 2023-11-27 15:26 | disposition home or self-care (01) ==
LOC: JER 09:11
PROC: 3E033NZ Introduction of Analgesics, Hypnotics, Sedatives into Peripheral Vein, Percutaneous Approach (ICD-10-PCS; principal; 2023-11-27)
DX: S00.83XA Contusion of other part of head, initial encounter (principal); N39.0 Urinary tract infection, site not specified; W01.198A Fall on same level from slipping, tripping and stumbling with subsequent striking against other object, initial encounter; Y92.9 Unspecified place or not applicable; Z20.822 Contact with and (suspected) exposure to COVID-19
CPT/HCPCS: 0241U-QW; 36415; 70450-TC; 70486-TC; 71045-TC-FY; 72125-TC; 80053; 81003; 82962; 84484; 85025; 87077; 87086; 93005; 93010; 96374; 99285-25

== ENCOUNTER 2024-08-04 17:07 | Observation (INO) | payer OTHER ==
[2024-08-04 19:08] LABS: BASO % 0.7 % (0-2.0); EOS % 0.7 % (0-4.5); HEMATOCRIT 38.8 % (32.4-45.2); HEMOGLOBIN 13.1 GM/dL (10.7-15.3); LYMPH % 17.7 % (8-40); MCH 31.6 pg (25.7-33.7); MCHC 33.8 g/dl (32.0-36.0); MEAN CELL VOLUME 93.5 fl (80-96); MONO % 9.7 % (3.8-10.2); NEUT % 71.2 % (42.8-82.8); PLATELET COUNT 228 10^3/uL (134-434); RBC 4.15 M/mm3 (3.60-5.2); RDW 13.7 % (11.6-15.6); WHITE BLOOD COUNT 7.6 K/mm3 (4.0-10.0)
[2024-08-04 19:14] LABS: INR 1.04 (0.83-1.09); PROTHROMBIN TIME (PATIENT) 11.9 SEC (9.7-13.0)
[2024-08-04 19:17] LABS: ACTIVATED PTT 28.3 SECONDS (25.2-36.5)
[2024-08-04 19:24] LABS: POTASSIUM 4.3 mmol/L (3.5-5.1)
[2024-08-04 19:26] LABS: CALCIUM 9.6 mg/dL (8.5-10.1)
[2024-08-04 19:27] LABS: ALBUMIN 3.6 g/dl (3.4-5.0); BLOOD UREA NITROGEN 43.6 mg/dL (7-18)
[2024-08-04 19:30] LABS: CREATININE 1.7 mg/dL (0.55-1.3)
[2024-08-04 19:31] LABS: BILIRUBIN,TOTAL 0.7 mg/dL (0.2-1); TOT PROT 6.9 g/dl (6.4-8.2)
[2024-08-04] MEDS ORDERED: ACETAMINOPHEN INJECTION 100 ML ONE (20:12)
[2024-08-04] MEDS: ACETAMINOPHEN 1000 MG/100 ML BAG IVPB ONE (20:36)
[2024-08-04] MEDS ORDERED: LIDOCAINE 4% PATCH TP ONE (20:58)
[2024-08-04] MEDS: LIDOCAINE 4% PATCH TP ONE (21:04)
[2024-08-04] MEDS ORDERED: LIDOCAINE PATCH REMOVAL MC SCH (22:00)
[2024-08-04 22:01] LABS: URINE APPEARANCE CLEAR; URINE BILIRUBIN SMALL (NEGATIVE); URINE COLOR DK YELLOW; URINE GLUCOSE (UA) NEGATIVE (NEGATIVE); URINE KETONE TRACE (NEGATIVE)
[2024-08-04 22:02] LABS: URINE LEUK ESTERASE 3+ (NEGATIVE); URINE NITRITE NEGATIVE (NEGATIVE); URINE PROTEIN 100 (NEGATIVE); URINE UROBILINOGEN 0.2 mg/dL (0.2-1.0)
[2024-08-04 22:03] LABS: EPI CELLS >36 /uL (0-25.1); HYALINE CASTS 8 /uL (0-3.1); URINE BACTERIA 57 /uL (0-1359); URINE RBC 52 /uL (0-23.9); URINE WBC 58 /uL (0-25.8)
[2024-08-04] MEDS: SODIUM CHLORIDE 1,000 ML IV STA (22:24)
[2024-08-05] MEDS ORDERED: DOCUSATE SODIUM 100 MG CAPSULE (FP) PO PRN (01:58)
[2024-08-05] MEDS: SODIUM CHLORIDE 0.45% 1,000 ML IV SCH ×2 (03:34→06:15)
[2024-08-05] MEDS: ACETAMINOPHEN 1000 MG/100 ML BAG IVPB ONE (03:34)
[2024-08-05 03:44] VITALS: BMI 29.6
[2024-08-05] MEDS: LISINOPRIL 10 MG TABLET PO ONE (05:56)
[2024-08-05] MEDS: INSULIN ASPART SLIDING SCALE (NOVOLOG) 1 VIAL SQ SCH (06:03)
[2024-08-05 07:56] LABS: BASO % 0.7 % (0-2.0); EOS % 2.4 % (0-4.5); HEMATOCRIT 36.1 % (32.4-45.2); HEMOGLOBIN 12.3 GM/dL (10.7-15.3); LYMPH % 27.2 % (8-40); MCH 32.2 pg (25.7-33.7); MEAN CELL VOLUME 94.5 fl (80-96); MEAN PLT VOLUME 7.5 fl (7.5-11.1); MONO % 11.3 % (3.8-10.2); NEUT % 58.4 % (42.8-82.8); PLATELET COUNT 207 10^3/uL (134-434); RBC 3.82 M/mm3 (3.60-5.2); RDW 13.4 % (11.6-15.6); WHITE BLOOD COUNT 7.1 K/mm3 (4.0-10.0)
[2024-08-05 08:52] LABS: BLOOD UREA NITROGEN 42.2 mg/dL (7-18); CALCIUM 9.1 mg/dL (8.5-10.1)
[2024-08-05 08:53] LABS: POTASSIUM 3.9 mmol/L (3.5-5.1)
[2024-08-05 08:56] LABS: CREATININE 1.4 mg/dL (0.55-1.3); PHOSPHOROUS 2.9 mg/dL (2.5-4.9)
[2024-08-05] MEDS ORDERED: ACETAMINOPHEN 325 MG TABLET (FP) PO PRN (09:00)
[2024-08-05] MEDS ORDERED: INSULIN ASPART SLIDING SCALE (NOVOLOG) 1 VIAL SQ ONE ×2 (10:23→16:16)
[2024-08-05] MEDS: amLODIPine BESYLATE 5 MG TABLET (FP) PO SCH (10:53)
[2024-08-05] MEDS: metoPROLOL SUCCINATE 25 MG TAB.SR.24H (FP) PO SCH (10:53)
[2024-08-05] MEDS: ASPIRIN 81 MG CHEWABLE TABLETS PO SCH (10:53)
[2024-08-05] MEDS: LIDOCAINE PATCH REMOVAL MC SCH (12:29)
[2024-08-05] MEDS ORDERED: TRIMETHOBENZAMIDE HCL 200MG/2ML INJ IM PRN (19:23)
[2024-08-05] MEDS: ATORVASTATIN CA 40 MG TABLET (FP) PO SCH (22:03)
[2024-08-06 08:26] LABS: POTASSIUM 3.6 mmol/L (3.5-5.1)
[2024-08-06 08:35] LABS: ALBUMIN 3.1 g/dl (3.4-5.0); BLOOD UREA NITROGEN 32.2 mg/dL (7-18); CALCIUM 8.5 mg/dL (8.5-10.1)
[2024-08-06 08:38] LABS: CREATININE 1.3 mg/dL (0.55-1.3)
[2024-08-06 08:40] LABS: BILIRUBIN,TOTAL 1.2 mg/dL (0.2-1); TOT PROT 5.8 g/dl (6.4-8.2)
[2024-08-06] MEDS: LISINOPRIL 10 MG TABLET PO SCH (10:48)
[2024-08-06] MEDS: amLODIPine BESYLATE 5 MG TABLET (FP) PO ONE (11:30)
[2024-08-07 13:58] VITALS: BP 128/64; PULSE 62; RESP 20; TEMP 98.1
== END 2024-08-07 16:40 | disposition home or self-care (01) ==
LOC: JER 17:07 → JERBED 08-05 00:24 → J7W 08-05 02:41
PROVIDERS: ADMIT Internal Medicine; ATTEND Family Medicine
PROC: 3E033NZ Introduction of Analgesics, Hypnotics, Sedatives into Peripheral Vein, Percutaneous Approach (ICD-10-PCS; principal; 2024-08-05)
PROC: 3E03329 Introduction of Other Anti-infective into Peripheral Vein, Percutaneous Approach (ICD-10-PCS; 2024-08-05)
PROC: 3E0337Z Introduction of Electrolytic and Water Balance Substance into Peripheral Vein, Percutaneous Approach (ICD-10-PCS; 2024-08-05)
DX: K38.1 Appendicular concretions (principal); E78.5 Hyperlipidemia, unspecified; E11.9 Type 2 diabetes mellitus without complications; E03.9 Hypothyroidism, unspecified; K21.9 Gastro-esophageal reflux disease without esophagitis; G62.9 Polyneuropathy, unspecified; I25.10 Atherosclerotic heart disease of native coronary artery without angina pectoris; I11.9 Hypertensive heart disease without heart failure; N17.9 Acute kidney failure, unspecified; I25.2 Old myocardial infarction; Z95.5 Presence of coronary angioplasty implant and graft; Z87.440 Personal history of urinary (tract) infections; Z87.891 Personal history of nicotine dependence; Z91.041 Radiographic dye allergy status; Z88.0 Allergy status to penicillin
CPT/HCPCS: 36415; 71045-TC-FY; 73564-TC-LT-FY; 74177-TC; 80048; 80053; 81003; 82962; 83605; 83690; 83735; 84100; 84439; 84443; 84484; 85025; 85610; 85730; 86850; 86900; 86901; 87086; 93005; 93010; 96361; 96365; 96366; 96368; 96375; 99285-25; G0378; J0131; Q9967

== ENCOUNTER 2024-12-25 11:33 | Emergency (ER) | payer OTHER ==
[2024-12-25 11:50] VITALS: BP 129/50; PULSE 50; RESP 18; TEMP 98.2; BMI 28.1
[2024-12-25 13:16] LABS: BASO % 0.7 % (0-2.0); EOS % 2.3 % (0-4.5); HEMATOCRIT 32.4 % (32.4-45.2); HEMOGLOBIN 11.2 GM/dL (10.7-15.3); LYMPH % 30.1 % (8-40); MCHC 34.6 g/dl (32.0-36.0); MEAN CELL VOLUME 92.5 fl (80-96); MEAN PLT VOLUME 7.2 fl (7.5-11.1); MONO % 9.7 % (3.8-10.2); NEUT % 57.2 % (42.8-82.8); PLATELET COUNT 178 10^3/uL (134-434); RDW 13.1 % (11.6-15.6); WHITE BLOOD COUNT 5.9 K/mm3 (4.0-10.0)
[2024-12-25 13:48] LABS: POTASSIUM 5.2 mmol/L (3.5-5.1)
[2024-12-25 13:50] LABS: ALBUMIN 3.6 g/dl (3.4-5.0); CALCIUM 9.2 mg/dL (8.5-10.1)
[2024-12-25 13:51] LABS: BLOOD UREA NITROGEN 37.6 mg/dL (7-18)
[2024-12-25 13:54] LABS: CREATININE 1.7 mg/dL (0.55-1.3)
[2024-12-25 13:55] LABS: BILIRUBIN,TOTAL 0.6 mg/dL (0.2-1); TOT PROT 6.7 g/dl (6.4-8.2)
[2024-12-25 13:58] LABS: N-TERMINAL BNP 733.5 pg/ml (5-450)
[2024-12-25 14:24] LABS: INR 0.96 (0.83-1.09); PROTHROMBIN TIME (PATIENT) 10.6 SEC (9.7-13.0)
== END 2024-12-25 15:23 | disposition home or self-care (01) ==
LOC: JER 11:33
DX: I82.402 Acute embolism and thrombosis of unspecified deep veins of left lower extremity (principal); R00.1 Bradycardia, unspecified; I45.10 Unspecified right bundle-branch block; R94.31 Abnormal electrocardiogram [ECG] [EKG]
CPT/HCPCS: 36415; 80053; 83880; 84484; 85025; 85610; 85730; 93005; 93010; 93970-TC; 99285-25

== ENCOUNTER 2025-02-19 21:41 | Inpatient (IN) | payer OTHER ==
[2025-02-19 22:59] LABS: ABSOLUTE IMMATURE GRANULOCYTES 0.08 x10^3/uL (0.0-0.031); BASOPHILS # 0.03 x10^3/uL (0.01-0.08); EOSINOPHIL % 0.4 % (0.7-5.8); EOSINOPHILS # 0.06 x10^3/uL (0.04-0.36); HEMATOCRIT 31.7 % (34.1-44.9); HEMOGLOBIN 10.2 g/dL (11.2-15.7); MCHC 32.2 g/dl (32.2-35.5); MEAN CELL VOLUME 98.4 fl (79.4-94.8); MEAN PLT VOLUME 10.2 fl (9.4-12.3); MONOCYTE # 1.32 x10^3/uL (0.24-0.86); MONOCYTE % 9.3 % (4.7-12.5); PLATELET COUNT 176 x10^3/uL (182-369); RDW 13.2 % (12.5-17.0)
[2025-02-19 23:18] LABS: POTASSIUM 4.3 mmol/L (3.5-5.1)
[2025-02-19 23:21] LABS: CALCIUM 8.9 mg/dL (8.5-10.1)
[2025-02-19 23:22] LABS: ALBUMIN 2.9 g/dl (3.4-5.0); MAGNESIUM 2.5 mg/dL (1.8-2.4)
[2025-02-19 23:25] LABS: PHOSPHOROUS 2.6 mg/dL (2.5-4.9)
[2025-02-19 23:26] LABS: BILIRUBIN,TOTAL 0.8 mg/dL (0.2-1); TOT PROT 6.5 g/dl (6.4-8.2)
[2025-02-20 00:10] LABS: EPI CELLS 23 /uL (0-25.1); HYALINE CASTS 0 /uL (0-3.1); URINE APPEARANCE CLOUDY; URINE BACTERIA 99 /uL (0-1359); URINE BILIRUBIN NEGATIVE (NEGATIVE); URINE COLOR YELLOW; URINE GLUCOSE (UA) NEGATIVE (NEGATIVE); URINE KETONE NEGATIVE (NEGATIVE); URINE LEUK ESTERASE 1+ (NEGATIVE); URINE NITRITE NEGATIVE (NEGATIVE); URINE PROTEIN 1+ (NEGATIVE); URINE UROBILINOGEN 0.2 mg/dL (0.2-1.0); URINE WBC 35 /uL (0-25.8)
[2025-02-20 00:14] LABS: POTASSIUM 3.9 mmol/L (3.5-5.1)
[2025-02-20 00:16] LABS: BLOOD UREA NITROGEN 79.8 mg/dL (7-18); CALCIUM 8.9 mg/dL (8.5-10.1); MAGNESIUM 2.5 mg/dL (1.8-2.4)
[2025-02-20] MEDS ORDERED: CEFEPIME HCL/D5W 2 GM/50 ML BAG IVPB ONE ×2 (01:25)
[2025-02-20] MEDS: CEFEPIME HCL 2 GM VIAL (RESTRICTED TO ID) IVPB ONE (01:26)
[2025-02-20] MEDS ORDERED: DOCUSATE SODIUM 100 MG CAPSULE (FP) PO PRN (01:40)
[2025-02-20] MEDS ORDERED: CEFEPIME HCL/D5W 2 GM/50 ML PREMIX IVPB SCH (02:30)
[2025-02-20] MEDS: SODIUM CHLORIDE 1,000 ML IV SCH (02:32)
[2025-02-20] MEDS: INSULIN ASPART SLIDING SCALE (NOVOLOG) 1 VIAL SQ SCH ×2 (02:32→20:20)
[2025-02-20 03:53] LABS: URINE RBC 91.7 /uL (0-23.9)
[2025-02-20 03:57] VITALS: BMI 29.7
[2025-02-20 08:59] LABS: ABSOLUTE IMMATURE GRANULOCYTES 0.06 x10^3/uL (0.0-0.031); BASOPHILS # 0.02 x10^3/uL (0.01-0.08); EOSINOPHIL % 1.5 % (0.7-5.8); EOSINOPHILS # 0.17 x10^3/uL (0.04-0.36); HEMATOCRIT 27.8 % (34.1-44.9); HEMOGLOBIN 9.1 g/dL (11.2-15.7); MCHC 32.7 g/dl (32.2-35.5); MEAN CELL VOLUME 95.2 fl (79.4-94.8); MONOCYTE # 1.17 x10^3/uL (0.24-0.86); MONOCYTE % 10.4 % (4.7-12.5); PLATELET COUNT 156 x10^3/uL (182-369); RDW 13.2 % (12.5-17.0)
[2025-02-20 09:08] LABS: INR 1.15 (0.83-1.09); PROTHROMBIN TIME (PATIENT) 12.5 SEC (9.7-13.0)
[2025-02-20 09:09] LABS: ACTIVATED PTT 22.4 SECONDS (25.2-36.5)
[2025-02-20 09:28] LABS: BLOOD UREA NITROGEN 77.6 mg/dL (7-18); CALCIUM 8.4 mg/dL (8.5-10.1)
[2025-02-20 09:32] LABS: CREATININE 1.8 mg/dL (0.55-1.3)
[2025-02-20] MEDS: amLODIPine BESYLATE 5 MG TABLET (FP) PO SCH (10:06)
[2025-02-20] MEDS ORDERED: BUPIVACAINE HCL/PF 0.25% (2.5MG/ML) 10 ML VIAL ONE (11:14)
[2025-02-20] MEDS ORDERED: cefOXitin SODIUM 2 GM VIAL (RESTRICTED TO ID) IVPB ONE (12:05)
[2025-02-20] MEDS ORDERED: HEPARIN NA (PORCINE) 5,000 UNITS/ML 1ML VIAL ONE (12:06)
[2025-02-20] MEDS: ceFAZolin SODIUM 1 GM VIAL IVPB ONE (12:15)
[2025-02-20] MEDS ORDERED: PROPOFOL 20 ML ONE ×2 (12:24→14:41)
[2025-02-20] MEDS ORDERED: LIDOCAINE HCL 2% 100 MG/5 ML DISP.SYRIN ONE (12:24)
[2025-02-20] MEDS ORDERED: ROCURONIUM BROMIDE 50 MG/5 ML SYRINGE ONE (12:24)
[2025-02-20] MEDS ORDERED: SUGAMMADEX SODIUM 200 MG/2 ML VIAL ONE ×2 (12:58→14:42)
[2025-02-20] MEDS ORDERED: ONDANSETRON 4 MG/2 ML VIAL ONE (12:58)
[2025-02-20] MEDS: BUPIVACAINE HCL/PF 0.25% (2.5MG/ML) 10 ML VIAL IJ ONE (13:09)
[2025-02-20] MEDS ORDERED: ONDANSETRON 4 MG/2 ML VIAL IVPUSH PRN ×3 (13:17→15:33)
[2025-02-20] MEDS ORDERED: LACTATED RINGERS SOLUTION 1,000 ML IV SCH (15:33)
[2025-02-20] MEDS ORDERED: HYDROmorphone HCl 2 MG/ML VIAL IVPB PRN (15:33)
[2025-02-20] MEDS: ACETAMINOPHEN 1000 MG/100 ML BAG IVPB ONE ×2 (16:08→16:51)
[2025-02-20] MEDS: LACTATED RINGERS SOLUTION 1,000 ML IV SCH ×2 (16:09→16:51)
[2025-02-20] MEDS ORDERED: SUCCINYLCHOLINE CHLORIDE 200 MG/10 ML SYRINGE ONE (17:56)
[2025-02-20] MEDS ORDERED: ACETAMINOPHEN 1000 MG/100 ML BAG IVPB SCH (19:00)
[2025-02-20] MEDS: oxyCODONE HCL 5 MG TABLET PO PRN (21:22)
[2025-02-20] MEDS: ATORVASTATIN CA 40 MG TABLET (FP) PO SCH (21:24)
[2025-02-20] MEDS ORDERED: ATORVASTATIN CA 40 MG TABLET (FP) PO SCH (22:00)
[2025-02-20] MEDS: ACETAMINOPHEN 1000 MG/100 ML BAG IVPB SCH (22:10)
[2025-02-20] MEDS ORDERED: HYDROmorphone HCL CARPU-JECT 2 MG/1 ML DISP.SYRIN IVPB PRN (23:49)
[2025-02-21] MEDS ORDERED: CEFEPIME HCL/D5W 2 GM/50 ML PREMIX IVPB SCH ×2 (02:00)
[2025-02-21] MEDS: CEFEPIME 2 GM in DEXTROSE 5%-WATER 100 ML IVPB SCH (02:14)
[2025-02-21 07:53] LABS: ABSOLUTE IMMATURE GRANULOCYTES 0.09 x10^3/uL (0.0-0.031); BASOPHILS # 0.02 x10^3/uL (0.01-0.08); EOSINOPHIL % 1.1 % (0.7-5.8); HEMOGLOBIN 8.5 g/dL (11.2-15.7); MCHC 32.7 g/dl (32.2-35.5); MEAN PLT VOLUME 9.4 fl (9.4-12.3); MONOCYTE # 1.07 x10^3/uL (0.24-0.86); MONOCYTE % 12.2 % (4.7-12.5); PLATELET COUNT 155 x10^3/uL (182-369); RDW 13.7 % (12.5-17.0)
[2025-02-21 08:15] LABS: POTASSIUM 4.4 mmol/L (3.5-5.1)
[2025-02-21 08:16] LABS: CALCIUM 8.2 mg/dL (8.5-10.1)
[2025-02-21 08:17] LABS: BLOOD UREA NITROGEN 61.4 mg/dL (7-18)
[2025-02-21 08:20] LABS: CREATININE 1.6 mg/dL (0.55-1.3)
[2025-02-21] MEDS: ENOXAPARIN NA (PORCINE) 40 MG/0.4 ML DISP.SYRIN SQ SCH (09:05)
[2025-02-21] MEDS: amLODIPine BESYLATE 5 MG TABLET (FP) PO SCH (09:06)
[2025-02-21] MEDS: PANTOPRAZOLE 40 MG TABLET PO SCH (09:06)
[2025-02-21] MEDS ORDERED: PANTOPRAZOLE 40 MG TABLET PO SCH (10:00)
[2025-02-21] MEDS: CEFTRIAXONE 2 GM-D5W BAG 2 GM/50 ML BAG IVPB SCH (14:23)
[2025-02-21] MEDS: oxyCODONE HCL 5 MG TABLET PO PRN (14:30)
[2025-02-22 07:56] LABS: HEMATOCRIT 25.7 % (34.1-44.9); HEMOGLOBIN 8.4 g/dL (11.2-15.7); MCHC 32.7 g/dl (32.2-35.5); MEAN CELL VOLUME 97.7 fl (79.4-94.8); MEAN PLT VOLUME 9.4 fl (9.4-12.3); PLATELET COUNT 182 x10^3/uL (182-369); RDW 13.9 % (12.5-17.0)
[2025-02-22 08:17] LABS: CALCIUM 8.2 mg/dL (8.5-10.1)
[2025-02-22 08:18] LABS: BLOOD UREA NITROGEN 46.4 mg/dL (7-18)
[2025-02-22 08:21] LABS: ALBUMIN 2.1 g/dl (3.4-5.0); CREATININE 1.4 mg/dL (0.55-1.3)
[2025-02-22 08:22] LABS: BILIRUBIN,TOTAL 0.4 mg/dL (0.2-1)
[2025-02-23] MEDS ORDERED: CEFEPIME HCL/D5W 2 GM/50 ML PREMIX IVPB SCH ×2 (02:00)
[2025-02-23 09:43] LABS: HEMATOCRIT 25.3 % (34.1-44.9); HEMOGLOBIN 8.2 g/dL (11.2-15.7); MCHC 32.4 g/dl (32.2-35.5); MEAN CELL VOLUME 97.3 fl (79.4-94.8); MEAN PLT VOLUME 9.2 fl (9.4-12.3); PLATELET COUNT 207 x10^3/uL (182-369); RDW 14.3 % (12.5-17.0)
[2025-02-23 10:10] LABS: POTASSIUM 4.1 mmol/L (3.5-5.1)
[2025-02-23 10:15] LABS: ALBUMIN 1.9 g/dl (3.4-5.0); BLOOD UREA NITROGEN 36.1 mg/dL (7-18); CALCIUM 8.2 mg/dL (8.5-10.1); MAGNESIUM 1.9 mg/dL (1.8-2.4)
[2025-02-23 10:18] LABS: CREATININE 1.2 mg/dL (0.55-1.3)
[2025-02-23 10:20] LABS: BILIRUBIN,TOTAL 0.4 mg/dL (0.2-1); TOT PROT 4.5 g/dl (6.4-8.2)
[2025-02-23] MEDS: IRON SUCROSE INJECTION 200 MG in SODIUM CHLORIDE 100 ML IVPB ONE (11:47)
[2025-02-23] MEDS: ACETAMINOPHEN 1000 MG/100 ML BAG IVPB PRN (21:04)
[2025-02-25 09:12] LABS: ABSOLUTE IMMATURE GRANULOCYTES 0.27 x10^3/uL (0.0-0.031); BASOPHILS # 0.02 x10^3/uL (0.01-0.08); EOSINOPHIL % 1.7 % (0.7-5.8); EOSINOPHILS # 0.15 x10^3/uL (0.04-0.36); HEMATOCRIT 25.8 % (34.1-44.9); HEMOGLOBIN 8.4 g/dL (11.2-15.7); MCHC 32.6 g/dl (32.2-35.5); MEAN CELL VOLUME 96.6 fl (79.4-94.8); MEAN PLT VOLUME 9.8 fl (9.4-12.3); MONOCYTE # 0.75 x10^3/uL (0.24-0.86); MONOCYTE % 8.4 % (4.7-12.5); PLATELET COUNT 270 x10^3/uL (182-369); RDW 14.1 % (12.5-17.0)
[2025-02-25 09:49] LABS: POTASSIUM 3.6 mmol/L (3.5-5.1)
[2025-02-25 10:04] LABS: ALBUMIN 1.9 g/dl (3.4-5.0)
[2025-02-25 10:05] LABS: CALCIUM 7.9 mg/dL (8.5-10.1)
[2025-02-25 10:06] LABS: BILIRUBIN,TOTAL 0.2 mg/dL (0.2-1); TOT PROT 4.6 g/dl (6.4-8.2)
[2025-02-25 10:07] LABS: CREATININE 0.9 mg/dL (0.55-1.3)
[2025-02-25 18:53] VITALS: RESP 18
[2025-02-26] MEDS: ACETAMINOPHEN 325 MG TABLET (FP) PO PRN (00:23)
[2025-02-26] MEDS: IRON SUCROSE INJECTION 200 MG in SODIUM CHLORIDE 100 ML IVPB ONE (11:23)
[2025-02-26 14:53] VITALS: BP 138/64; PULSE 74; TEMP 98.8
== END 2025-02-26 15:03 | disposition home or self-care (01) | DRG 330 ==
LOC: JER 21:41 → JERBED 02-20 01:27 → J5S 02-20 03:13
PROVIDERS: ADMIT Family Medicine; ATTEND Family Medicine
PROC: 0DTJ4ZZ Resection of Appendix, Percutaneous Endoscopic Approach (ICD-10-PCS; 2025-02-20)
PROC: 0W9F00Z Drainage of Abdominal Wall with Drainage Device, Open Approach (ICD-10-PCS; 2025-02-20)
PROC: 0DTH4ZZ Resection of Cecum, Percutaneous Endoscopic Approach (ICD-10-PCS; principal; 2025-02-20 12:30)
DX: K35.33 Acute appendicitis with perforation, localized peritonitis, and gangrene, with abscess (principal); E87.1 Hypo-osmolality and hyponatremia; N17.9 Acute kidney failure, unspecified; E11.42 Type 2 diabetes mellitus with diabetic polyneuropathy; R62.7 Adult failure to thrive; I25.10 Atherosclerotic heart disease of native coronary artery without angina pectoris; Z95.5 Presence of coronary angioplasty implant and graft; F03.90 Unspecified dementia, unspecified severity, without behavioral disturbance, psychotic disturbance, mood disturbance, and anxiety; E03.9 Hypothyroidism, unspecified; I10 Essential (primary) hypertension; E11.65 Type 2 diabetes mellitus with hyperglycemia; D72.829 Elevated white blood cell count, unspecified; E78.5 Hyperlipidemia, unspecified; K21.9 Gastro-esophageal reflux disease without esophagitis
CPT/HCPCS: 0241U-QW; 36415; 71045-TC-FY; 74176-TC; 80048; 80053; 81003; 82728; 82962; 83540; 83550; 83690; 83735; 84100; 84484; 85025; 85027; 85610; 85730; 86140; 86850; 86900; 86901; 87070; 87075; 87076; 87086; 87186; 87205; 88305-TC; 93005; 93010; 93970-TC; 94760; 97116-GP; 97162-GP; 99285-25; J0131; J1644; J1756